=== PATIENT | female | born 1935 | race Caucasian/White ===

== ENCOUNTER 2021-10-16 19:09 | Inpatient (IN) ==
[2021-10-16] MEDS ORDERED: morphine 2 MG/ML VIAL IV ONE (19:30)
--- NOTE | 2021-10-16 19:47 | Emergency Department Note ---
Fall HPI <Darryn Garrison PA-C - Last Filed: 10/16/21 20:23> General Chief Complaint: Fall Stated Complaint: hip fracture Time Seen by Provider: 10/16/21 19:27 Mode of arrival: EMS Limitations: no limitations History of Present Illness HPI Narrative: Narrative:86 y/ofivaniae brought to ED by paramedics as transfer from [facility] ED after she was walking backwards while carrying something, tripped over door threshold and landed on left hip resulting in loud pop and pain. Pt was taken to ED there and found to have hip fracture then transferred here to be cared for by Dr. Hutson, ortho surg. Pt denies hitting her head, CP, SOB, Abd pain neck or back pain. States only current complaint is left hip pain. Related Data Home Medications Medication Instructions Recorded Confirmed acalabrutinib 100 mg capsule 100 mg PO Q12H 10/16/21 10/16/21 (Calquence) apixaban 2.5 mg tablet 2.5 mg PO BID 10/16/21 10/16/21 Allergies Allergy/AdvReac Type Severity Reaction Status Date / Time No Known Drug Allergies Allergy Unverified 10/16/21 19:11 Review of Systems <Darryn Garrison PA-C - Last Filed: 10/16/21 20:23> ROS ROS Narrative: Narrative: Constitutional: Denies fever or chills Eyes: Denies eye pain ENT ED: Denies ear pain Cardiovascular: Denies chest pain or palpitations Respiratory: Denies shortness of breath, cough or wheezes Gastrointestinal: Denies abdominal pain, nausea, vomiting or diarrhea Genitourinary: Denies dysuria, urgency or frequency Musculoskeletal: Reports joint pain (left hip); Denies back pain or joint swelling Integumentary: Reports lesions (multiple bruises due to eliquis); Denies rash Neurological: Denies headache, weakness or confusion Psychiatric: Denies anxiety or depression Endocrine: Denies fatigue Hematological/Lymphatic: Reports easy bleeding and easy bruising PFSH <Darryn Garrison PA-C - Last Filed: 10/16/21 20:23> Narrative Patient History Narrative: Narrative: Left DVT April 2021 CLL dx May 2021 peripheral neuropathy Bilat total knee replacements Kelle fundoplication Medical/Surgical/Family History All Active Problems (Updated 10/16/21 @ 19:49 by Darryn Garrison PA-C) Hip fracture (Acute) Social History Smoking Status: Never smoker Alcohol Intake Frequency: does not drink Substance Use: does not use Exam <Darryn Garrison PA-C - Last Filed: 10/16/21 20:23> Narrative Narrative: Narrative: General Limitations: no limitations General appearance: Present alert and in no apparent distress Head Head: Present atraumatic and normocephalic Eye Eye: Present normal appearance and EOMI ENT ENT: Present normal exam, normal oropharynx and mucous membranes moist Neck Neck: Present normal inspection, full ROM and trachea midline; Absent tenderness Chest Chest: Present normal inspection and symmetric chest wall rise Respiratory Respiratory: Present normal lung sounds bilaterally; Absent respiratory distress Cardiovascular Cardiovascular: Present regular rate, normal rhythm and normal heart sounds Adbominal Abdominal: Present soft and normal bowel sounds; Absent distention, tenderness or guarding Extremities Extremities: Present tenderness (Tender left greater trochanter area left hip with shortening of left leg and internal rotation. ) and pedal edema (trace); Absent calf tenderness Back Back: Present normal inspection; Absent tenderness or L-S tenderness Neurological Neurological: Present alert and oriented X3 Psychiatric Psychiatric: Present normal affect and normal mood Skin Skin: Present warm (WNL) and dry Course <Darryn Garrison PA-C - Last Filed: 10/16/21 20:23> Vital Signs Vital signs: Vital Signs Temperature 98.2 F 10/16/21 19:13 Pulse Rate 95 H 10/16/21 19:13 Respiratory Rate 16 10/16/21 19:13 Blood Pressure 106/73 10/16/21 19:13 Pulse Oximetry (%) 97 10/16/21 19:13 Temperature 97.8 F 10/16/21 23:47 Pulse Rate 92 H 10/16/21 23:47 Respiratory Rate 20 10/16/21 23:47 Blood Pressure 105/58 10/16/21 23:47 Pulse Oximetry (%) 98 10/16/21 23:47 [facility] <Darryn Garrison PA-C - Last Filed: 10/16/21 20:23> MDM Narrative Medical decision making narrative: Narrative:Old records from [facility] reviewed. Dr. Hutson called ED prior to pt arrival requesting repeat x-rays, then call him. Labs reviewed from [facility]. Pt slightly anemic, on Elaquis, will type and screen in ED. Will also obtain CXR and EKG then notify hospitalist and ortho. Pt given Morphine 2mg IV in ED prior to going to x-ray for better pain control. 1999 Ortho paged, in surgery. Will call back later. 2014 Paged and spoke with Dr. Ocampo hospitalist. Will see pt in ED. ED POC Tests ED POC Tests: GLADIS - SARS Antigen Negative Radiology Data Radiology results narrative: CXR reviewed by me shows elevated right hemidiaphragm. Pelvis and left hip x-ray shows comminuted 100% off-set greater trochanteric fracture. EKG Data EKG #1: EKG attestation: Yes I reviewed and interpreted this EKG. and Yes There are no EKG findings of acute coronary syndrome EKG results narrative: NSR at rate of 92, normal axis, borderline low voltage, no ectopy, no STEMI. Discharge Plan Patient/Caregiver Discharge Instructions Pt seen by MYSQL DEVELOPER/PA only: Yes Clinical Impression: Hip fracture Patient Disposition: Still a Patient Discharge Date/Time: 10/16/21 21:24
--- NOTE | 2021-10-16 21:00 | Internal Med History&Physical ---
HPI History of Present Illness Patient information: Note initiated : 10/16/21 at 9:00 pm Service Date, if different from initiated Date: [] Patient: Allison Mcnally a 86 y/o F admitted on for hip fracture. Chief Complaint: [] History of present illness: Ms. Mcnally is a 86 year old F with history of lower extremity DVT/CLL on chemo therapy transferred from [facility] following a fall this evening sustaining Left hip fracture. She was visiting her friend From [facility]. She sustained a mechanical fall while moving backwards and tripping on the door threshold landing on her back. She thereafter was transferred to [facility] where she underwent work-up consistent with left hip fracture. Orthopedics was consulted at [facility] and recommended transfer for operative intervention. Hospitalist service was consulted to facilitate admission while patient will undergo operative intervention in 24 hours. Patient has been on apixaban which was held, her last dose was this morning. At the time of my evaluation patient is alert and oriented. She denies active distress. She denies fever chills, loss of consciousness, headache, chest pain or vertigo. She is otherwise fairly healthy at baseline. She denies recent hospitalization. She follows up with oncology for CLL currently in remission since 2019. Denies precipitating events including lightheadedness, vertigo, dizziness or loss of consciousness following fall. She denies pain elsewhere. Review of systems 10 point review system was performed and is negative except for ones discussed above PFSH PFSH All Active Problems Hip fracture (Acute) Social History alcohol intake frequency: does not drink substance use type: does not use MEDS/ALLERGIES Home Medications and Allergies Home Medications Medication Instructions Recorded Confirmed Type acalabrutinib 100 mg capsule 100 mg PO Q12H 10/16/21 10/16/21 History (Calquence) apixaban 2.5 mg tablet 2.5 mg PO BID 10/16/21 10/16/21 History Allergies Allergy/AdvReac Type Severity Reaction Status Date / Time No Known Drug Allergies Allergy Unverified 10/16/21 19:11 EXAM Constitutional Vitals: Temp Pulse Resp BP Pulse Ox 98.2 F 101 H 16 104/58 97 10/16/21 19:13 12/07/21 20:41 10/16/21 19:13 10/16/21 19:46 10/16/21 20:41 Anxious and in pain Head normocephalic Oral cavity dry No ear or nose discharge Eye no subconjunctival pallor, movement symmetrical S1-S2 tachycardia, occasionally irregular Nonlabored breathing Nondistended nontender abdomen Left lower extremity shortened and externally rotated ,, no lymphedema Skin no suspicious lesion Psych anxious but no hallucination Neuro normal higher function on limited neuro exam A/P Narrative A/P Narrative: * Left hip fracture-orthopedic consulted. Surgery in a.m., keep n.p.o. Pain management. * Preoperative risk evaluation-overall high risk category based on surgery specific risk however no modifiable risk factors at this time. Surgery and anesthesia specific risks will be addressed by individual care providers * History of DVT May 2021, on apixaban, will be held until surgery * History of CLL in remission since 2019 on chemotherapy. * Mild volume depletion-crystalloid challenge/maintenance fluids Plan * Inpatient admission * Orthopedic consult * Pain management * N.p.o. after midnight * Review postop * Hold anticoagulation Time Spent With Patient Time: Total time spent is greater than 50% in coordination of care (as documented) at patient's floor/unit and/or counseling patient: Total time spent with greater than 50% in coordination of care (as documented) at patient's floor/unit and/or counseling patient:: Greater than 35 minutes
[2021-10-16] MEDS: 0.9 % SODIUM CHLORIDE 1,000 ML IV SCH (21:20)
[2021-10-16] MEDS ORDERED: guaiFENesin/CODEINE 10 ML UDC PO PRN (21:52)
[2021-10-16] MEDS ORDERED: hydrALAZINE 20 MG/ML VIAL IV PRN (21:52)
[2021-10-16] MEDS ORDERED: POTASSIUM CHLORIDE 40 MEQ in DEXTROSE 5% IN WATER 500 ML IV PRN (21:52)
[2021-10-16] MEDS ORDERED: BISACODYL 10 MG SUPP.RECT PR PRN (21:52)
[2021-10-16] MEDS ORDERED: ACETAMINOPHEN 650 MG/65 ML BAG IV PRN (21:52)
[2021-10-16] MEDS ORDERED: POLYETHYLENE GLYCOL 3350 17 GM PACKET PO PRN (21:52)
[2021-10-16] MEDS ORDERED: ACETAMINOPHEN 325 MG TABLET PO PRN (21:52)
[2021-10-16] MEDS ORDERED: ONDANSETRON 4 MG/2 ML VIAL IV PRN (21:52)
[2021-10-16] MEDS ORDERED: MAGNESIUM SULFATE 2 GM/50 ML BAG IV PRN (21:52)
[2021-10-16] MEDS ORDERED: ONDANSETRON 4 MG ODT TABLET SL PRN (21:52)
[2021-10-16] MEDS: HYDROmorphone 0.5 MG/0.5 ML SYRINGE IV PRN (22:19)
[2021-10-16] MEDS ORDERED: 0.9 % SODIUM CHLORIDE 500 ML IV ONE (22:23)
[2021-10-16] MEDS: 0.9 % SODIUM CHLORIDE 10 ML SYRINGE IV SCH (23:43)
[2021-10-16] MEDS: SENNOSIDES/DOCUSATE SODIUM 1 TAB TABLET PO SCH (23:43)
[2021-10-16] MEDS: DOCUSATE SODIUM 100 MG CAPSULE PO SCH (23:44)
[2021-10-17] MEDS: HYDROmorphone 0.5 MG/0.5 ML SYRINGE IV PRN ×3 (03:19→15:14)
--- NOTE | 2021-10-17 04:41 | XRay Report ---
INDICATION: fractured hip TECHNIQUE: AP pelvis. AP and crosstable lateral left hip COMPARISON: None. FINDINGS: Mildly comminuted fracture of the intertrochanteric and subtrochanteric left hip. There is displacement. Distal component is displaced medially. There is marked varus angulation deformity. IMPRESSION: Mildly comminuted displaced intertrochanteric and subtrochanteric fracture of the right hip Interpreted and Authenticated by: Adam Nieto 10/17/21
--- NOTE | 2021-10-17 04:43 | XRay Report ---
INDICATION: pre op left hip fracture TECHNIQUE: AP supine chest x-ray COMPARISON: None FINDINGS: Lungs:Lungs are negative. No focal pulmonary parenchymal infiltrate or mass Heart, vascular:No significant cardiomegaly. Pulmonary vascularity is normal. No pulmonary edema or pulmonary congestion Mediastinum, clark:No mediastinal widening. No hilar mass Pleura:Elevated right hemidiaphragm. No evidence for pleural effusion. Skeletal:No detectable rib fracture. No acute abnormality Upper abdomen: There is mild gaseous distention of the stomach IMPRESSION: No acute abnormality Interpreted and Authenticated by: Adam Nieto 10/17/21
[2021-10-17] MEDS: 0.9 % SODIUM CHLORIDE 10 ML SYRINGE IV SCH ×3 (04:58→23:52)
--- NOTE | 2021-10-17 07:00 | Orthopedic History & Physical ---
HPI History of Present Illness Patient information: Note initiated : 10/17/21 at 6:59 am Service Date, if different from initiated Date: [] Patient: Allison Mcnally 86 y/o F admitted on 10/16/21 for hip fracture. Chief Complaint: [left hip pain s/p fall ] Chief complaint: left hip pain s/p fall History of present illness: Ms. Mcnally is a 86 year old Female with history of CLL who was carrying packages at a friends home when she tripped over a door threshold sustaining a mechanical fall. She was subsequently transported to [facility] in [place] where workup and imaging revealed a intertrochanteric fracture of the left hip. Orthopedic surgeon Dr. Hutson was contacted and patient was transferred to [facility] for repeat imaging and treatment. Patient denies head strike or loss of consciousness during the event and denies any other injuries or pain. She is a non-smoker, does not use alcohol or street drugs. Review of Systems All systems: reviewed and no additional remarkable complaints except as stated PFSH PFSH All Active Problems Hip fracture (Acute) Social History alcohol intake frequency: does not drink substance use type: does not use MEDS/ALLERGIES Home Medications and Allergies Home Medications Medication Instructions Recorded Confirmed Type acalabrutinib 100 mg capsule 100 mg PO Q12H 10/16/21 10/16/21 History (Calquence) apixaban 2.5 mg tablet 2.5 mg PO BID 10/16/21 10/16/21 History Allergies Allergy/AdvReac Type Severity Reaction Status Date / Time No Known Drug Allergies Allergy Unverified 10/16/21 19:11 Physical Examination Narrative Narrative: Narrative: Results Labs Result Diagrams: 10/17/21 05:33 10/17/21 05:33 Labs: All other labs normal. A/P Narrative A/P Narrative: On exam patient is seated in bed in no acute distress, lungs are equal and clear, heart normal rate and rhythm. Head, neck, chest, abdomen and right side pelvis are non-tender to palpation. breathing is unlabored with symmetrical chest movement. Both upper extremities and right lower are non-tender to palpation, with normal ROM. There is tenderness to palpation at the left hip and pelvis area and tenderness with any ROM. All four extremities are warm well perfused an neuro intact. patient does endorse mild neuropathy in bilat lower extremities. Options were presented to the patient including non-surgical and surgical option. Non-surgical carries the risk of increased pain, injury to nerves and blood vessels, loss of ROM and pain. Surgical option consisting of Left hip open reduction internal fixation via TFNA hip nail. At this time patient is interested in surgery. Plan is for open reduction internal fixation via LEFT hip TFNA hip nail to take place semi-urgently with Dr. Hutson surgeon and Waqas VALDEZ. Surgical risk were explaine to the patient to include but not limited to: pain, bleeding, infection, injury to nerves and adjacent structures, implant failure/ need for further surgery, stroke risk, cardiac complications, pulmonary complications including pneumonia and pulmonary embolism, DVT and . Patient understands these risks and wishes to proceed with surgery. Time Spent With Patient Time: Total time spent is greater than 50% in coordination of care (as documented) at patient's floor/unit and/or counseling patient:
[2021-10-17 07:19] LABS: Basophils # (Auto) 0.02 K/mcL (0.00-0.30); Basophils % (Auto) 0.2 % (0.0-2.0); Eosinophils # (Auto) 0 K/mcL (0.00-0.70); Eosinophils % (Auto) 0 % (0.0-7.0); Hematocrit 26.5 % (34.1-44.9); Hemoglobin 8.6 g/dL (11.2-15.7); Lymphocytes # (Auto) 6.56 K/mcL (1.50-4.80); Lymphocytes % (Auto) 64.3 % (15.5-49.0); Mean Corpuscular HGB Conc 32.5 g/dL (31.0-36.0); Monocytes # (Auto) 0.78 K/mcL (0.10-0.90); Monocytes % (Auto) 7.6 % (1.0-12.0); Neutrophils % (Auto) 27.9 % (38.0-78.0); Platelet Count 85 K/mcL (140-440); RBC 2.76 M/mcL (3.59-5.38); WBC 10.2 K/mcL (4.5-11.0)
[2021-10-17 07:44] LABS: ALT/SGPT 6 U/L (<40); AST/SGOT 18 U/L (<32); Albumin 3.2 gm/dL (3.2-5.2); Albumin/Globulin Ratio 2.1 (1.0-2.3); Alkaline Phosphatase 71 U/L (39-117); Bilirubin,Direct 0.2 mg/dL (<0.3); Blood Urea Nitrogen 13 mg/dL (8-23); Calcium 8.3 mg/dL (8.6-10.4); Carbon Dioxide 23 mmol/L (22-30); Chloride 105 mmol/L (96-108); Globulin 1.5 gm/dL (2.2-3.7); Glomerular Filtration Rate 58; Glucose 107 mg/dL (70-105); Lactate Dehydrogenase 181 U/L (135-225); Phosphorous 3.9 mg/dL (2.5-4.5); Triglycerides 96 mg/dL (<150); Uric Acid 5.6 mg/dL (2.5-8.0)
[2021-10-17] MEDS: 0.9 % SODIUM CHLORIDE 1,000 ML IV SCH (09:26)
[2021-10-17] MEDS: MULTIVIT,THER IRON,CA,FA & MIN 1 TABLET PO SCH (09:58)
[2021-10-17] MEDS: DOCUSATE SODIUM 100 MG CAPSULE PO SCH ×2 (09:58→23:52)
--- NOTE | 2021-10-17 10:52 | Internal Med Progress Note ---
SUBJECTIVE Subjective Patient information: Note initiated : 10/17/21 at 10:50 am Service Date, if different from initiated Date: [] Patient: Allison Mcnally a 86 y/o F admitted on 10/16/21 for hip fracture. Chief Complaint: [] Interval history: Ms. Mcnally is a 86 year old F with history of lower extremity DVT/CLL on chemo therapy transferred from [facility] following a fall this evening sustaining Left hip fracture. She was visiting her friend at [place] from [facility]. She sustained a mechanical fall while moving backwards and tripping on the door threshold landing on her back. She thereafter was transferred to [facility] where she underwent work-up consistent with left hip fracture. Orthopedics was consulted at [facility] and recommended transfer for operative intervention. Hospitalist service was consulted to facilitate admission while patient will undergo operative intervention in 24 hours. Patient has been on apixaban which was held, her last dose was this morning. At the time of my evaluation patient is alert and oriented. She denies active distress. She denies fever chills, loss of consciousness, headache, chest pain or vertigo. She is otherwise fairly healthy at baseline. She denies recent hospitalization. She follows up with oncology for CLL currently in remission since 2019. Denies precipitating events including lightheadedness, vertigo, dizziness or loss of consciousness following fall. She denies pain elsewhere. 10/17-patient awaits surgery later this evening. Doing well. Pain is reasonably well controlled. Will review postop. No overnight fever chills or concerns per nursing staff. Constitutional Vitals: Vital Signs Temp Pulse Resp BP Pulse Ox 98.4 F 90 18 124/59 95 10/17/21 07:10 10/17/21 07:10 10/17/21 07:10 10/17/21 07:10 10/17/21 07:10 Period Temp Pulse Resp BP Sys/Sánchez Pulse Ox Last 24 Hr 97.8 F-98.4 F 84-101 16-20 98-126/58-73 95-98 Intake and Output 10/16/21 10/17/21 10/17/21 21:59 05:59 13:59 Intake Total 8 500 547 Output Total 300 Balance 8 200 547 Weight 80.059 kg alert oriented Nonlabored breathing Anxious Left lower extremity tenderness around the left hip Intake & Output: Intake & Output 10/16/21 10/17/21 10/17/21 21:59 05:59 13:59 Intake Total 8 500 547 Output Total 300 Balance 8 200 547 Weight 80.059 kg Intake: IV 8 500 547 Sodium Chloride 0.9% 1,000 ml @ 8 0 547 50 mls/hr IV .Q20H [facility] Rx#: [id number] Sodium Chloride 0.9% 500 ml @ 500 Wide Open IV BOLUS ONE Rx#: [id number] Oral 0 Output: Urine Catheter Amount 300 Other: Urine Appearance Clear Uretheral (Stringer) Clear Clear Urine Color Dark Yellow Uretheral (Stringer) Bright Yellow Bright Yellow Urine Odor Uretheral (Stringer) Normal OBJ DATA Labs CBC & Chem 7: 10/17/21 05:33 10/17/21 05:33 Labs: Abnormal Lab Results 10/17/21 10/17/21 05:33 05:33 RBC 2.76 L Hgb 8.6 L Hct 26.5 L Plt Count 85 L MPV 12.0 H Neut % (Auto) 27.9 L Lymph % (Auto) 64.3 H Lymph # (Auto) 6.56 H Anion Gap 7.0 L Glucose 107 H Calcium 8.3 L Total Protein 4.7 L Globulin 1.5 L Meds: Medications Acetaminophen (Acetaminophen 325 Mg Tablet) 650 mg PO Q4-6HP PRN; Protocol PRN Reason: Per Pain Protocol/Fever > 101 Bisacodyl (Bisacodyl 10 Mg Supp.Rect) 10 mg MS Q2-3DAYS PRN PRN Reason: Constipation Docusate Sodium (Docusate Sodium 100 Mg Capsule) 100 mg PO BID [facility] Last Admin: 10/17/21 09:58 Dose: Not Given Documented by: Guaifenesin/Codeine Phosphate (Guaifenesin/Codeine 10 Ml Udc) 10 ml PO Q4HP PRN PRN Reason: Cough Hydralazine HCl (Hydralazine 20 Mg/Ml Vial) 10 mg IV Q4-6HP PRN PRN Reason: Hypertension Hydromorphone HCl (Hydromorphone 0.5 Mg/0.5 Ml Syringe) 0.25 - 0.5 mg IV Q4HP PRN; Protocol PRN Reason: Per Pain Protocol Last Admin: 10/17/21 10:09 Dose: 0.5 mg Documented by: Potassium Chloride 40 meq/ (Dextrose) 520 mls @ 130 mls/hr IV UD PRN PRN Reason: K+ = or < 3.5 Acetaminophen (Ofirmev) 650 mg in 65 mls @ 130 mls/hr IV Q6HP PRN; Protocol PRN Reason: Per Pain Protocol/Fever > 101 Magnesium Sulfate (Magnesium Sulfate) 2 gm in 50 mls @ 50 mls/hr IV UD PRN PRN Reason: MG = or < 1.7 Sodium Chloride (Sodium Chloride 0.9%) 1,000 mls @ 50 mls/hr IV .Q20H [facility] Stop: 10/19/21 09:51 Last Admin: 10/17/21 09:26 Dose: 50 mls/hr Documented by: Iron Carb/Multivit/Restaurant [employer] Person/Folic Acid (Multivit,Ther Iron,Ca,Fa & Min 1 Tablet) 1 tab PO DAILY [facility] Last Admin: 10/17/21 09:58 Dose: Not Given Documented by: Melatonin (Melatonin 3 Mg Tablet) 3 mg PO HSP PRN PRN Reason: Insomnia Ondansetron HCl (Ondansetron 4 Mg Odt Tablet) 4 mg SL Q4-6HP PRN; Protocol PRN Reason: Nausea And Vomiting Ondansetron HCl (Ondansetron 4 Mg/2 Ml Vial) 4 mg IV Q4-6HP PRN; Protocol PRN Reason: Nausea And Vomiting Acalabrutinib [ Calquence] 100 Mg Capsule 1 dose PO Q12 [facility] Last Admin: 10/17/21 10:02 Dose: 1 dose Documented by: Polyethylene Glycol (Polyethylene Glycol 3350 17 Gm Packet) 17 gm PO DAILYP PRN PRN Reason: Constipation Senna/Docusate Sodium (Sennosides/Docusate Sodium 1 Tab Tablet) 1 tab PO HS [facility] Last Admin: 10/16/21 23:43 Dose: Not Given Documented by: Sodium Chloride (0.9 % Sodium Chloride 10 Ml Syringe) 10 ml IV Q8 [facility] Last Admin: 10/17/21 04:58 Dose: Not Given Documented by: A/P Narrative A/P Narrative: * Left hip fracture-orthopedic consulted. Surgery later this evening. Keep n.p.o., continue pain management * Preoperative risk evaluation-overall high risk category based on surgery specific risk however no modifiable risk factors at this time. Surgery and anesthesia specific risks will be addressed by individual care providers * History of DVT May 2021, on apixaban, continue to hold until surgery * History of CLL in remission since 2019 on chemotherapy. * Mild volume depletion-continue crystalloids Plan * Review postop * Continue pain management * Hold anticoagulation * PT, nutrition support Time Spent With Patient Time: Total time spent is greater than 50% in coordination of care (as documented) at patient's floor/unit and/or counseling patient: Total time spent with greater than 50% in coordination of care (as documented) at patient's floor/unit and/or counseling patient:: 25 - 35 minutes
--- NOTE | 2021-10-17 13:40 | Internal Med Progress Note ---
SUBJECTIVE Subjective Patient information: Note initiated : 10/17/21 at 1:38 pm Service Date, if different from initiated Date: [] Patient: Allison Mcnally a 86 y/o F admitted on 10/16/21 for hip fracture. Chief Complaint: [] Interval history: Ms. 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 following a fall this evening sustaining Left hip fracture. She was visiting her friend at [place] from [facility]. She sustained a mechanical fall while moving backwards and tripping on the door threshold landing on her back. She thereafter was transferred to [facility] where she underwent work-up consistent with left hip fracture. Orthopedics was consulted at [facility] and recommended transfer for operative intervention. Hospitalist service was consulted to facilitate admission while patient will undergo operative intervention in 24 hours. Patient has been on apixaban which was held, her last dose was this morning. At the time of my evaluation patient is alert and oriented. She denies active distress. She denies fever chills, loss of consciousness, headache, chest pain or vertigo. She is otherwise fairly healthy at baseline. She denies recent hospitalization. She follows up with oncology for CLL currently in remission since 2019. Denies precipitating events including lightheadedness, vertigo, dizziness or loss of consciousness following fall. She denies pain elsewhere. 10/17-patient awaits surgery later this evening. Doing well. Pain is reasonably well controlled. Will review postop. No overnight fever chills or concerns per nursing staff. Constitutional Vitals: Vital Signs Temp Pulse Resp BP Pulse Ox 98.4 F 97 H 18 109/53 93 10/17/21 11:00 10/17/21 11:00 10/17/21 11:00 10/17/21 11:00 10/17/21 11:00 Period Temp Pulse Resp BP Sys/Sánchez Pulse Ox Last 24 Hr 97.8 F-98.4 F 84-101 16-20 98-126/53-73 93-98 Intake and Output 10/16/21 10/17/21 10/17/21 21:59 05:59 13:59 Intake Total 8 500 547 Output Total 300 Balance 8 200 547 Weight 80.059 kg Intake & Output: Intake & Output 12/05/3010/17/21 10/17/21 21:59 05:59 13:59 Intake Total 8 500 547 Output Total 300 Balance 8 200 547 Weight 80.059 kg Intake: IV 8 500 547 Sodium Chloride 0.9% 1,000 ml @ 8 0 547 50 mls/hr IV .Q20H [facility] Rx#: [id number] Sodium Chloride 0.9% 500 ml @ 500 Wide Open IV BOLUS ONE Rx#: [id number] Oral 0 Output: Urine Catheter Amount 300 Other: Urine Appearance Clear Uretheral (Stringer) Clear Clear Urine Color Dark Yellow Uretheral (Stringer) Bright Yellow Bright Yellow Urine Odor Uretheral (Stringer) Normal Exam: General: Alert, Awake, No acute Distress Eyes/N/T: EOMI, Head/Neck: neck supple, CV: RRR, No murmurs, Pulm: Clear b/l, no wheezing/rhonchi/rales Abd: soft, nontender, +BS x4 Ext: no clubbing/cyanosis/edema Neuro: Alert, no focal deficits, moves all extremities, Skin: warm/dry OBJ DATA Labs CBC & Chem 7: 10/17/21 05:33 10/17/21 05:33 Labs: Abnormal Lab Results 10/17/21 10/17/21 05:33 05:33 RBC 2.76 L Hgb 8.6 L Hct 26.5 L Plt Count 85 L MPV 12.0 H Neut % (Auto) 27.9 L Lymph % (Auto) 64.3 H Lymph # (Auto) 6.56 H Anion Gap 7.0 L Glucose 107 H Calcium 8.3 L Total Protein 4.7 L Globulin 1.5 L Meds: Medications Acetaminophen (Acetaminophen 325 Mg Tablet) 650 mg PO Q4-6HP PRN; Protocol PRN Reason: Per Pain Protocol/Fever > 101 Bisacodyl (Bisacodyl 10 Mg Supp.Rect) 10 mg [place] Q2-3DAYS PRN PRN Reason: Constipation Docusate Sodium (Docusate Sodium 100 Mg Capsule) 100 mg PO BID [facility] Last Admin: 10/17/21 09:58 Dose: Not Given Documented by: Guaifenesin/Codeine Phosphate (Guaifenesin/Codeine 10 Ml Udc) 10 ml PO Q4HP PRN PRN Reason: Cough Hydralazine HCl (Hydralazine 20 Mg/Ml Vial) 10 mg IV Q4-6HP PRN PRN Reason: Hypertension Hydromorphone HCl (Hydromorphone 0.5 Mg/0.5 Ml Syringe) 0.25 - 0.5 mg IV Q4HP PRN; Protocol PRN Reason: Per Pain Protocol Last Admin: 10/17/21 10:09 Dose: 0.5 mg Documented by: Potassium Chloride 40 meq/ (Dextrose) 520 mls @ 130 mls/hr IV UD PRN PRN Reason: K+ = or < 3.5 Acetaminophen (Ofirmev) 650 mg in 65 mls @ 130 mls/hr IV Q6HP PRN; Protocol PRN Reason: Per Pain Protocol/Fever > 101 Magnesium Sulfate (Magnesium Sulfate) 2 gm in 50 mls @ 50 mls/hr IV UD PRN PRN Reason: MG = or < 1.7 Sodium Chloride (Sodium Chloride 0.9%) 1,000 mls @ 50 mls/hr IV .Q20H [facility] Stop: 10/19/21 09:51 Last Admin: 10/17/21 09:26 Dose: 50 mls/hr Documented by: Iron Carb/Multivit/Digitizer/Folic Acid (Multivit,Ther Iron,Ca,Fa & Min 1 Tablet) 1 tab PO DAILY [facility] Last Admin: 10/17/21 09:58 Dose: Not Given Documented by: Melatonin (Melatonin 3 Mg Tablet) 3 mg PO HSP PRN PRN Reason: Insomnia Ondansetron HCl (Ondansetron 4 Mg Odt Tablet) 4 mg SL Q4-6HP PRN; Protocol PRN Reason: Nausea And Vomiting Ondansetron HCl (Ondansetron 4 Mg/2 Ml Vial) 4 mg IV Q4-6HP PRN; Protocol PRN Reason: Nausea And Vomiting Acalabrutinib [ Calquence] 100 Mg Capsule 1 dose PO Q12 [facility] Last Admin: 10/17/21 10:02 Dose: 1 dose Documented by: Polyethylene Glycol (Polyethylene Glycol 3350 17 Gm Packet) 17 gm PO DAILYP PRN PRN Reason: Constipation Senna/Docusate Sodium (Sennosides/Docusate Sodium 1 Tab Tablet) 1 tab PO [facility] Last Admin: 10/16/21 23:43 Dose: Not Given Documented by: Sodium Chloride (0.9 % Sodium Chloride 10 Ml Syringe) 10 ml IV Q8 [facility] Last Admin: 10/17/21 04:58 Dose: Not Given Documented by: A/P Narrative A/P Narrative: A: *Left hip fracture -Preoperative risk evaluation-overall high risk category based on surgery specific risk however no modifiable risk factors at this time. Surgery and anesthesia specific risks will be addressed by individual care providers *h/o DVT May 2021: on apixaban *h/o CLL in remission since 2018: on chemotherapy *Mild volume depletion-continue crystalloids Plan: -Ortho for ORIF -Hold anticoagulation, restart postop per ortho -cont home medication for CLL -pt/ot -ppx: SCD, post op home apixaban Time Spent With Patient Time: Total time spent is greater than 50% in coordination of care (as documented) at patient's floor/unit and/or counseling patient:
[2021-10-17] MEDS ORDERED: GLYCOPYRROLATE 0.2 MG/ML VIAL IV ONE (20:34)
[2021-10-17] MEDS ORDERED: MIDAZOLAM 2 MG/2 ML VIAL ONE (20:34)
[2021-10-17] MEDS ORDERED: ROPIVACAINE HCL/PF 20 ML VIAL IJ ONE (20:34)
[2021-10-17] MEDS ORDERED: ETOMIDATE 20 MG/10 ML VIAL IV ONE (20:34)
[2021-10-17] MEDS ORDERED: KETAMINE 50 MG/ML Syringe (ANEST) IV ONE (20:34)
[2021-10-17] MEDS ORDERED: ONDANSETRON 4 MG/2 ML VIAL ONE (20:34)
[2021-10-17] MEDS ORDERED: TRANEXAMIC ACID 1,000 MG/10 ML VIAL ONE ×2 (20:34→22:39)
[2021-10-17] MEDS ORDERED: HYDROmorphone 1 MG/ML SYRINGE ONE (20:34)
[2021-10-17] MEDS ORDERED: LIDOCAINE HCL/PF 100 MG/5 ML SYRINGE IV ONE (20:34)
[2021-10-17] MEDS ORDERED: METHOCARBAMOL 1,000 MG/10 ML VIAL IV PRN (21:50)
[2021-10-17] MEDS ORDERED: BENZOCAINE/MENTHOL 1 LOZENGE PO PRN ×2 (21:50→22:09)
[2021-10-17] MEDS ORDERED: fentaNYL 100 MCG/2 ML VIAL IV PRN (21:50)
[2021-10-17] MEDS ORDERED: IPRATROPIUM/ALBUTEROL 3 ML AMPUL.NEB NEB PRN (21:50)
[2021-10-17] MEDS ORDERED: ONDANSETRON 4 MG/2 ML VIAL IV PRN (21:50)
[2021-10-17] MEDS ORDERED: MEPERIDINE 25 MG/ML VIAL IV PRN (21:50)
[2021-10-17] MEDS ORDERED: LACTATED RINGERS 1,000 ML IV SCH (22:00)
--- NOTE | 2021-10-17 22:07 | General Surgery Procedure Note ---
Date of procedure: Note initiated : 10/17/21 at 10:06 pm Service Date, if different from initiated Date: [] Pre-op diagnosis: left hip subtrochanteric fracture Post-op diagnosis: same Procedure: left hip TFNa nail Findings: subtroch fracture Anesthesia: CATHLEEN Surgeon: Adam Hutson Strapper: Alonzo Lebron Estimated blood loss: 150 Pathology: none sent Condition: stable Disposition: PACU
--- NOTE | 2021-10-17 22:08 | Discharge Plan ---
DC Instructions-General Patient Instructions Dressing Care: May shower in 2 days Discharge Plan Patient/Caregiver Discharge Instructions Activity: ambulate only with your walker, as per physical therapy and as instructed Diet: Regular Diet Prescriptions: No Action apixaban 2.5 mg Tablet 2.5 mg PO BID 0RF Calquence 100 mg Capsule 100 mg PO Q12H 0RF Follow Up Plan Follow up with: Austin Rankin MD [Primary Care Provider] - Sylvester Lerner PA-C [Physician Pulp Mixer] - 10/29/21 3:20 pm Patient Disposition: Xfer SNF Rehab Potential: Good I certify that the patient requires SNF services: Yes Overall status at discharge: patient is progressing back to baseline Discharge Orders: Discharge Order (Routine); Ordered 10/19/21 Ordered By: Adam Hutson Discharge Comment: cc: left hip it fracture
[2021-10-17] MEDS ORDERED: FLEETS ADULT ENEMA PR PRN (22:09)
[2021-10-17] MEDS ORDERED: ONDANSETRON 4 MG ODT TABLET SL PRN (22:09)
[2021-10-17] MEDS ORDERED: TRANEXAMIC ACID 1,000 MG/10 ML VIAL IV ONE (22:09)
[2021-10-17] MEDS ORDERED: morphine 4 MG/ML VIAL IV PRN (22:09)
[2021-10-17] MEDS ORDERED: KETOROLAC 15 MG/ML VIAL IV PRN (22:09)
[2021-10-17] MEDS ORDERED: MAGNESIUM HYDROXIDE 30 ML ORAL.SUSP PO PRN (22:09)
[2021-10-17] MEDS ORDERED: BISACODYL 10 MG SUPP.RECT PR PRN (22:09)
[2021-10-17] MEDS ORDERED: POLYETHYLENE GLYCOL 3350 17 GM PACKET PO PRN (22:09)
[2021-10-17] MEDS ORDERED: LACTATED RINGERS 500 ML IV SCH (23:25)
[2021-10-17] MEDS: SENNOSIDES/DOCUSATE SODIUM 1 TAB TABLET PO SCH (23:52)
[2021-10-18] MEDS: LACTATED RINGERS 1,000 ML IV SCH ×2 (00:03→11:58)
[2021-10-18] MEDS: 0.9 % SODIUM CHLORIDE 1,000 ML IV SCH ×2 (00:07→14:27)
[2021-10-18] MEDS ORDERED: LACTATED RINGERS 1,000 ML IV ONE ×2 (00:22→05:00)
[2021-10-18 01:35] LABS: Hemoglobin 6.6 g/dL (11.2-15.7)
[2021-10-18 01:36] LABS: Hematocrit 21.1 % (34.1-44.9)
[2021-10-18] MEDS ORDERED: 0.9 % SODIUM CHLORIDE 250 ML IV SCH ×2 (01:45→05:00)
[2021-10-18] MEDS: ceFAZolin 2 GM in DEXTROSE 5% IN WATER 50 ML IV SCH ×2 (01:49→10:27)
--- NOTE | 2021-10-18 05:48 | XRay Report ---
INDICATION: LEFT HIP IM NAIL TECHNIQUE: Intraoperative spot films and fluoroscopy utilized. Open reduction and internal fixation of left intertrochanteric and subtrochanteric hip fracture. Gamma nail reduction performed. 1.7 minutes fluoroscopy and 26.3 mGy exposure utilized IMPRESSION: 1. [Reduction and internal fixation of left hip fracture 2. Intraoperative fluoroscopy and spot films utilized Interpreted and Authenticated by: Adam Nieto 10/18/21
--- NOTE | 2021-10-18 06:00 | XRay Report ---
INDICATION: surgery TECHNIQUE: AP pelvis. AP and crosstable lateral left hip COMPARISON: Preoperative evaluation dated 10/16/2021 FINDINGS: Status post open reduction and internal fixation of left intertrochanteric and subtrochanteric fracture. There is a gamma nail configuration. Alignment is near-anatomic. Pelvis is negative. Sacrum and right hip are negative. IMPRESSION: Status post open reduction and internal fixation of left hip fracture Interpreted and Authenticated by: Adam Nieto 10/18/21
[2021-10-18] MEDS: 0.9 % SODIUM CHLORIDE 10 ML SYRINGE IV SCH ×3 (06:09→21:15)
--- NOTE | 2021-10-18 06:51 | Orthopedic Progress Note ---
SUBJECTIVE Subjective Patient information: Note initiated : 10/18/21 at 6:43 am Service Date, if different from initiated Date: [] Patient: Allison Mcnally 86 y/o F admitted on 10/16/21 for hip fracture. Chief Complaint: [s/p left TFNA hip nail ] Pertinent ROS: 10 point ROS performed and is negative except where mentioned. Constitutional Vitals: Vital Signs Temp Pulse Resp BP Pulse Ox 99.1 F H 102 H 18 106/52 96 10/18/21 05:30 10/18/21 05:30 10/18/21 05:30 10/18/21 05:30 10/18/21 05:30 Period Temp Pulse Resp BP Sys/Sánchez Pulse Ox Last 24 Hr 98.1 F-99.1 F 90-123 12-28 60-124/34-77 92-100 Intake and Output 10/17/21 10/18/21 10/18/21 21:59 05:59 13:59 Intake Total 628 4670 Output Total 175 700 Balance 453 3970 Weight 181 lb 4.8 oz Intake & Output: Intake & Output 10/17/21 10/18/21 10/18/21 21:59 05:59 13:59 Intake Total 628 4670 Output Total 175 700 Balance 453 3970 Weight 181 lb 4.8 oz Intake: IV 453 2545 Sodium Chloride 0.9% 1,000 ml @ 453 50 mls/hr IV .Q20H [facility] Rx#: [id number] Lactated Ringers 1,000 ml @ 100 2495 mls/hr IV .Q10H [facility] Rx#: [id number] Ancef 2 gm In Dextrose 5% in 50 Water 50 ml @ 100 mls/hr IV Q8H [facility] Rx#:[id number] Oral 175 0 Blood Product 325 IV - Manual Only 1800 Output: Urine Catheter Amount 175 400 Estimated Blood Loss 300 Other: Urine Appearance Clear Urine Color Dark Yellow OBJ DATA Labs CBC & Chem 7: 10/18/21 00:43 10/17/21 05:33 Labs: Abnormal Lab Results 10/18/21 10/17/21 10/17/21 00:43 05:33 05:33 RBC 2.76 L Hgb 6.6 L* 8.6 L Hct 21.1 L 26.5 L Plt Count 85 L MPV 12.0 H Neut % (Auto) 27.9 L Lymph % (Auto) 64.3 H Lymph # (Auto) 6.56 H Anion Gap 7.0 L Glucose 107 H Calcium 8.3 L Total Protein 4.7 L Globulin 1.5 L Meds: Medications Acetaminophen (Acetaminophen 325 Mg Tablet) 650 mg PO Q4-6HP PRN; Protocol PRN Reason: Per Pain Protocol/Fever > 101 Hydrocodone Bitart/Acetaminophen (Hydrocodone/Apap 10/325mg Tablet) 0 tab PO Q4HP PRN; Protocol PRN Reason: Per Pain Protocol Bisacodyl (Bisacodyl 10 Mg Supp.Rect) 10 mg [place] Q2-3DAYS PRN PRN Reason: Constipation Docusate Sodium (Docusate Sodium 100 Mg Capsule) 100 mg PO BID [facility] Guaifenesin/Codeine Phosphate (Guaifenesin/Codeine 10 Ml Udc) 10 ml PO Q4HP PRN PRN Reason: Cough Hydralazine HCl (Hydralazine 20 Mg/Ml Vial) 10 mg IV Q4-6HP PRN PRN Reason: Hypertension Potassium Chloride 40 meq/ (Dextrose) 520 mls @ 130 mls/hr IV UD PRN PRN Reason: K+ = or < 3.5 Acetaminophen (Ofirmev) 650 mg in 65 mls @ 130 mls/hr IV Q6HP PRN; Protocol PRN Reason: Per Pain Protocol/Fever > 101 Last Admin: 10/18/21 05:47 Dose: 130 mls/hr Documented by: Magnesium Sulfate (Magnesium Sulfate) 2 gm in 50 mls @ 50 mls/hr IV UD PRN PRN Reason: MG = or < 1.7 Sodium Chloride (Sodium Chloride 0.9%) 1,000 mls @ 50 mls/hr IV .Q20H [facility] Stop: 10/19/21 09:51 Last Admin: 10/18/21 00:07 Dose: Not Given Documented by: Lactated Ringer's (Lactated Ringers) 1,000 mls @ 100 mls/hr IV .Q10H [facility] Last Infusion: 10/18/21 05:30 Dose: 100 mls/hr Documented by: Lactated Ringer's (Lactated Ringers) 500 mls @ 0 mls/hr IV .Q0M [facility] Last Infusion: 10/18/21 00:00 Dose: Infused Documented by: Sodium Chloride (Sodium Chloride 0.9%) 250 mls @ 20 mls/hr IV .[id number] [facility] Stop: 10/18/21 14:14 Last Admin: 10/18/21 06:06 Dose: Not Given Documented by: Sodium Chloride (Sodium Chloride 0.9%) 250 mls @ 20 mls/hr IV .[id number] [facility] Stop: 10/18/21 17:29 Iron Carb/Multivit/Clutier/Folic Acid (Multivit,Ther Iron,Ca,Fa & Min 1 Tablet) 1 tab PO DAILY [facility] Last Admin: 10/17/21 09:58 Dose: Not Given Documented by: Ketorolac Tromethamine (Ketorolac 15 Mg/Ml Vial) 15 mg IV Q6HP PRN; Protocol PRN Reason: Per Pain Protocol Stop: 10/19/21 22:11 Magnesium Hydroxide (Magnesium Hydroxide 30 Ml Oral.Susp) 30 ml PO BIDP PRN PRN Reason: Constipation Melatonin (Melatonin 3 Mg Tablet) 3 mg PO HSP PRN PRN Reason: Insomnia Methocarbamol (Methocarbamol 750 Mg Tablet) 750 mg PO Q6HP PRN PRN Reason: Muscle Spasm Morphine Sulfate (Morphine 4 Mg/Ml Vial) 0 mg IV Q1HP PRN; Protocol PRN Reason: Per Pain Protocol Ondansetron HCl (Ondansetron 4 Mg/2 Ml Vial) 4 mg IV Q4-6HP PRN; Protocol PRN Reason: Nausea And Vomiting Ondansetron HCl (Ondansetron 4 Mg Odt Tablet) 4 mg SL Q4HP PRN; Protocol PRN Reason: Nausea And Vomiting Acalabrutinib [ Calquence] 100 Mg Capsule 1 dose PO Q12 [facility] Last Admin: 10/17/21 23:52 Dose: Not Given Documented by: Polyethylene Glycol (Polyethylene Glycol 3350 17 Gm Packet) 17 gm PO DAILYP PRN PRN Reason: Constipation Senna (Sennosides 1 Tablet) 2 tab PO HS [facility] Sodium Biphosphate/Sodium Phosphate (Fleets Adult Enema) 1 dose [place] Q3-4DAYS PRN PRN Reason: Constipation Sodium Chloride (0.9 % Sodium Chloride 10 Ml Syringe) 10 ml IV Q8 [facility] Last Admin: 10/18/21 06:09 Dose: Not Given Documented by: Throat Lozenges (Benzocaine/Menthol 1 Lozenge) 1 lozenge PO PRN PRN PRN Reason: Sore Throat A/P Narrative A/P Narrative: Patient seen and examined this am, awake, alert and cooperative. has expected post-op pain but feels it is well managed on current regimen. Dressing at E clean dry and intact, both LE warm, well perfused and neuro intact. Hypotensive , Tachy last night in 120s , bolused with LR, current HR 102, respirations 18, with hemoglobin 6.6 receiving packed RBCs. WB as tolerated, PT/OT Plan is for discharge to rehab in 1-2 days and follow up at [facility] in 10-14 days Time Spent With Patient Time: Total time spent is greater than 50% in coordination of care (as documented) at patient's floor/unit and/or counseling patient:
--- NOTE | 2021-10-18 07:56 | Internal Med Progress Note ---
SUBJECTIVE Subjective Patient information: Note initiated : 10/18/21 at 7:52 am Service Date, if different from initiated Date: [] Patient: Allison Mcnally a 86 y/o F admitted on 10/16/21 for hip fracture. Chief Complaint: [] Interval history: Ms. 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 She was visiting her friend at [place] from [facility]. She sustained a mechanical fall while moving backwards and tripping on the door threshold landing on her back. She thereafter was transferred to [facility] where she underwent work-up consistent with left hip fracture. Orthopedics was consulted at [facility] and recommended transfer for operative intervention. Hospitalist service was consulted to facilitate admission while patient will undergo operative intervention in 24 hours. Patient has been on apixaban which was held, her last dose was this morning. At the time of my evaluation patient is alert and oriented. She denies active distress. She denies fever chills, loss of consciousness, headache, chest pain or vertigo. She is otherwise fairly healthy at baseline. She denies recent hospitalization. She follows up with oncology for CLL currently in remission since 2019. Denies precipitating events including lightheadedness, vertigo, dizziness or loss of consciousness following fall. She denies pain elsewhere. 10/17-patient awaits surgery later this evening. Doing well. Pain is reasonably well controlled. Will review postop. No overnight fever chills or concerns per nursing staff. 10/18 Patient was hypotensive last night although asymptomatic other than fatigue but she was quite anemic at 6.6 postop. Received a unit of blood last night awaiting 2nd unit still. Receive lactated Ringer bolus x2. Patient denies any chest pain shortness of breath nausea. Review of Systems: denies headache/fever/chills/nausea/vomiting/chest or abdominal pain/cough/dysp jaye/diarrhea. Otherwise see above. Constitutional Vitals: Vital Signs Temp Pulse Resp BP Pulse Ox 98.0 F 98 H 18 94/54 96 10/18/21 07:00 10/18/21 07:00 10/18/21 07:00 10/18/21 07:00 10/18/21 07:00 Period Temp Pulse Resp BP Sys/Sánchez Pulse Ox Last 24 Hr 98.0 F-99.1 F 96-123 12-28 60-116/34-77 92-100 Intake and Output 10/17/21 10/18/21 10/18/21 21:59 05:59 13:59 Intake Total 628 4670 65 Output Total 175 700 Balance 453 3970 65 Weight 82.236 kg Intake & Output: Intake & Output 10/17/21 10/18/21 10/18/21 21:59 05:59 13:59 Intake Total 628 4670 65 Output Total 175 700 Balance 453 3970 65 Weight 82.236 kg Intake: IV 453 2545 65 Sodium Chloride 0.9% 1,000 ml @ 453 50 mls/hr IV .Q20H [facility] Rx#: [id number] Lactated Ringers 1,000 ml @ 100 2495 mls/hr IV .Q10H [facility] Rx#: [id number] Ancef 2 gm In Dextrose 5% in 50 Water 50 ml @ 100 mls/hr IV Q8H [facility] Rx#:[id number] Oral 175 0 Blood Product 325 IV - Manual Only 1800 Output: Urine Catheter Amount 175 400 Estimated Blood Loss 300 Other: Urine Appearance Clear Urine Color Dark Yellow Exam: General: Alert, Awake, No acute Distress Eyes/N/T: EOMI, Head/Neck: neck supple, CV: RRR, No murmurs, Pulm: Clear b/l, no wheezing/rhonchi/rales Abd: soft, nontender, +BS x4 Ext: no clubbing/cyanosis/edema Neuro: Alert, no focal deficits, moves all extremities, Skin: warm/dry OBJ DATA Labs CBC & Chem 7: 10/18/21 00:43 10/17/21 05:33 Labs: Abnormal Lab Results 10/18/21 10/17/21 10/17/21 00:43 05:33 05:33 RBC 2.76 L Hgb 6.6 L* 8.6 L Hct 21.1 L 26.5 L Plt Count 85 L MPV 12.0 H Neut % (Auto) 27.9 L Lymph % (Auto) 64.3 H Lymph # (Auto) 6.56 H Anion Gap 7.0 L Glucose 107 H Calcium 8.3 L Total Protein 4.7 L Globulin 1.5 L Meds: Medications Acetaminophen (Acetaminophen 325 Mg Tablet) 650 mg PO Q4-6HP PRN; Protocol PRN Reason: Per Pain Protocol/Fever > 101 Hydrocodone Bitart/Acetaminophen (Hydrocodone/Apap 10/325mg Tablet) 0 tab PO Q4HP PRN; Protocol PRN Reason: Per Pain Protocol Bisacodyl (Bisacodyl 10 Mg Supp.Rect) 10 mg SC Q2-3DAYS PRN PRN Reason: Constipation Docusate Sodium (Docusate Sodium 100 Mg Capsule) 100 mg PO BID [facility] Guaifenesin/Codeine Phosphate (Guaifenesin/Codeine 10 Ml Udc) 10 ml PO Q4HP PRN PRN Reason: Cough Hydralazine HCl (Hydralazine 20 Mg/Ml Vial) 10 mg IV Q4-6HP PRN PRN Reason: Hypertension Potassium Chloride 40 meq/ (Dextrose) 520 mls @ 130 mls/hr IV UD PRN PRN Reason: K+ = or < 3.5 Acetaminophen (Ofirmev) 650 mg in 65 mls @ 130 mls/hr IV Q6HP PRN; Protocol PRN Reason: Per Pain Protocol/Fever > 101 Last Infusion: 10/18/21 06:20 Dose: Infused Documented by: Magnesium Sulfate (Magnesium Sulfate) 2 gm in 50 mls @ 50 mls/hr IV UD PRN PRN Reason: MG = or < 1.7 Sodium Chloride (Sodium Chloride 0.9%) 1,000 mls @ 50 mls/hr IV .Q20H [facility] Stop: 10/19/21 09:51 Last Admin: 10/18/21 00:07 Dose: Not Given Documented by: Lactated Ringer's (Lactated Ringers) 1,000 mls @ 100 mls/hr IV .Q10H [facility] Last Infusion: 10/18/21 05:30 Dose: 100 mls/hr Documented by: Lactated Ringer's (Lactated Ringers) 500 mls @ 0 mls/hr IV .Q0M [facility] Last Infusion: 10/18/21 00:00 Dose: Infused Documented by: Sodium Chloride (Sodium Chloride 0.9%) 250 mls @ 20 mls/hr IV .[id number] [facility] Stop: 10/18/21 14:14 Last Admin: 10/18/21 06:06 Dose: Not Given Documented by: Sodium Chloride (Sodium Chloride 0.9%) 250 mls @ 20 mls/hr IV .[id number] [facility] Stop: 10/18/21 17:29 Iron Carb/Multivit/Track Car Operator/Folic Acid (Multivit,Ther Iron,Ca,Fa & Min 1 Tablet) 1 tab PO DAILY [facility] Last Admin: 10/17/21 09:58 Dose: Not Given Documented by: Ketorolac Tromethamine (Ketorolac 15 Mg/Ml Vial) 15 mg IV Q6HP PRN; Protocol PRN Reason: Per Pain Protocol Stop: 10/19/21 22:11 Magnesium Hydroxide (Magnesium Hydroxide 30 Ml Oral.Susp) 30 ml PO BIDP PRN PRN Reason: Constipation Melatonin (Melatonin 3 Mg Tablet) 3 mg PO HSP PRN PRN Reason: Insomnia Methocarbamol (Methocarbamol 750 Mg Tablet) 750 mg PO Q6HP PRN PRN Reason: Muscle Spasm Morphine Sulfate (Morphine 4 Mg/Ml Vial) 0 mg IV Q1HP PRN; Protocol PRN Reason: Per Pain Protocol Ondansetron HCl (Ondansetron 4 Mg/2 Ml Vial) 4 mg IV Q4-6HP PRN; Protocol PRN Reason: Nausea And Vomiting Ondansetron HCl (Ondansetron 4 Mg Odt Tablet) 4 mg SL Q4HP PRN; Protocol PRN Reason: Nausea And Vomiting Acalabrutinib [ Calquence] 100 Mg Capsule 1 dose PO Q12 [facility] Last Admin: 10/17/21 23:52 Dose: Not Given Documented by: Polyethylene Glycol (Polyethylene Glycol 3350 17 Gm Packet) 17 gm PO DAILYP PRN PRN Reason: Constipation Senna (Sennosides 1 Tablet) 2 tab PO HS [facility] Sodium Biphosphate/Sodium Phosphate (Fleets Adult Enema) 1 dose SC Q3-4DAYS PRN PRN Reason: Constipation Sodium Chloride (0.9 % Sodium Chloride 10 Ml Syringe) 10 ml IV Q8 [facility] Last Admin: 10/18/21 06:09 Dose: Not Given Documented by: Throat Lozenges (Benzocaine/Menthol 1 Lozenge) 1 lozenge PO PRN PRN PRN Reason: Sore Throat A/P Narrative A/P Narrative: A: *Left hip fracture: s/p ORIF (10/17) -Preoperative risk evaluation-overall high risk category based on surgery specific risk however no modifiable risk factors at this time. Surgery and anesthesia specific risks will be addressed by individual care providers *Acute post-op anemia: -2prbc (10/18) *Hypotension, asymptomatic: *h/o DVT May 2021: on apixaban *h/o CLL in remission since 2019: on chemotherapy *volume depletion: Plan: -Ortho following -f/u H&H, prn transfusion -Hold anticoagulation for now -IVF -cont home medication for CLL -pt/ot -ppx: SCD, post op home apixaban Time Spent With Patient Time: Total time spent is greater than 50% in coordination of care (as documented) at patient's floor/unit and/or counseling patient:
--- NOTE | 2021-10-18 08:14 | Operative Note ---
DATE OF OPERATION: 10/17/2021 PREOPERATIVE DIAGNOSIS: Reverse oblique subtrochanteric fracture, left hip. POSTOPERATIVE DIAGNOSIS: Reverse oblique subtrochanteric fracture, left hip. PROCEDURE: Left hip cephalomedullary nailing. SURGEON: Adam Hutson M.D. PER DIEM PHYSICAL THERAPIST ASSISTANT SURGEON: Waqas Lebron PA-C. The PA's assistance was required for the safe and efficient completion of the entire case. This provider's expertise and technical skill were required throughout the case. The PA assisted with preoperative coordination, intraoperative retraction, limb manipulation, wound closure, dressing application, as well as post-operative documentation and care coordination. ANESTHESIA: Spinal with LMA assist. ESTIMATED BLOOD LOSS: 150 mL COMPLICATIONS: None noted. SPECIMENS REMOVED: None DRAINS: None. IMPLANTS: Synthes TFNA 11 x 125 degree 235 mm left nail, TFNA fenestrated helical blade 95 mm, 5.0 mm titanium locking screw, 34 mm length. INDICATIONS: The patient fell and was unable to ambulate. Radiographs have confirmed a displaced intertrochanteric fracture of the proximal femur. The patient was admitted to the hospital and underwent medical clearance. After a long discussion about treatment options, the patient elected to proceed with cephalomedullary nailing. The risks and benefits were discussed with the patient in detail including, but not limited to, the risks of anesthesia, problems with the heart or lungs related to anesthesia, infection, compromise or injury to the nerves and blood vessels, deep venous thrombosis, pulmonary embolism, pneumonia, continued pain after surgery, worsening pain or symptoms after surgery, swelling, loss of motion, malunion, non-union, leg length discrepancy, and need for repeat surgery. DESCRIPTION OF PROCEDURE: The patient was seen in pre-anesthesia waiting room where all questions were answered and the correct side and site were identified and marked. The patient was then brought to the operating room and administered the anesthetic, tranexamic acid, and given pre-operative antibiotics. A time-out was then called. The patient was placed on the fracture table with all prominences well padded. The leg was brought into traction, adduction, and slight internal rotation. We used c-arm with orthogonal views to confirm anatomic reduction of the fracture. The extremity was prepped and draped in the usual sterile fashion. C-arm was again used to confirm landmarks. We made a 4 cm incision overlying the fracture site. We dissected down and used a ball-tip guide to reduce the fracture under direct visualization. A percutaneous incision was created about 4 centimeters proximal to the greater trochanter. A guide pin was placed into the femoral canal under fluoroscopy after we found the appropriate starting position along the medial boarder of the trochanter and just anterior to the center position laterally. We placed a protector sleeve proximally and over-reamed with the 17 mm proximal reamer. Next, we changed out the guide pin for a ball-tipped guide kai and placed it into the femoral canal. Position was confirmed with the c-arm. The 235 mm Synthes TFNA nail was then placed with appropriate depth and version using the percutaneous targeting guide. The lateral helical blade sleeve was placed in the targeting guide and a second small percutaneous incision was made to allow the sleeve access to the lateral cortex of the femur. We drilled the guide pin into the center center position of the femoral head confirmed with fluoroscopy. We measured and drilled over the guide pin. The helical blade was then inserted and we compressed the fracture. The targeting sleeve was again used to place a percutaneous 5.0 mm screw distally in the static hole. It was drilled, measured, and placed using c-arm guidance. Traction was removed on the hip. The targeting device was then removed and final radiographs were taken confirming reduction of the fracture and adequate placement of all hardware. We thoroughly irrigated the three percutaneous incisions and closed the deep fascia with #0 Vicryl. We closed the subcutaneous tissue and skin in layers out to lacy in the skin. A sterile pressure dressing was applied. All needle and sponge counts were correct. The patient was transferred to the recovery room in stable condition. LOUIE:rene Job ID: [id number] Doc ID: [id number] Annabella Hutson MD
--- NOTE | 2021-10-18 08:41 | EKG ---
[facility] Test Date: 2021-10-16 Pat Name: Allison Mcnally Department: ED Room: Gender: Female Rn Icu: 1685 : 1935 Requested By: Darryn Garrison Order Number: [id number] Reading MD: Adam Valladares M.D. Measurements Intervals Lindsay Rate: 92 P: 59 OR: 130 QRS: 12 QRSD: 88 T: 65 QT: 368 QTc: 456 Interpretive Statements Sinus rhythm Borderline low voltage, extremity leads Electronically Signed On 10-18-2021 8:40:59 PST by Adam Valladares M.D. /store/M0/[id number]
[2021-10-18 09:00] LABS: Basophils # (Auto) 0.02 K/mcL (0.00-0.30); Basophils % (Auto) 0.3 % (0.0-2.0); Eosinophils # (Auto) 0 K/mcL (0.00-0.70); Eosinophils % (Auto) 0 % (0.0-7.0); Hematocrit 20.9 % (34.1-44.9); Hemoglobin 6.9 g/dL (11.2-15.7); Lymphocytes # (Auto) 3.45 K/mcL (1.50-4.80); Mean Cell Volume 92.9 fL (80.0-100.0); Mean Platelet Volume 12.2 fL (7.4-10.4); Monocytes # (Auto) 0.58 K/mcL (0.10-0.90); Monocytes % (Auto) 9.4 % (1.0-12.0); Neutrophils % (Auto) 34.3 % (38.0-78.0); Platelet Count 66 K/mcL (140-440); RBC 2.25 M/mcL (3.59-5.38); Red Cell Distribution Width 15.8 % (11.5-14.5); WBC 6.2 K/mcL (4.5-11.0)
[2021-10-18 09:15] LABS: ALT/SGPT 6 U/L (<40); AST/SGOT 17 U/L (<32); Albumin 2.4 gm/dL (3.2-5.2); Albumin/Globulin Ratio 1.8 (1.0-2.3); Alkaline Phosphatase 54 U/L (39-117); Bilirubin,Direct 0.3 mg/dL (<0.3); Bilirubin,Total 0.9 mg/dL (0.1-1.0); Blood Urea Nitrogen 12 mg/dL (8-23); Calcium 7.8 mg/dL (8.6-10.4); Carbon Dioxide 20 mmol/L (22-30); Chloride 106 mmol/L (96-108); Globulin 1.3 gm/dL (2.2-3.7); Glomerular Filtration Rate 66; Glucose 113 mg/dL (70-105); Lactate Dehydrogenase 173 U/L (135-225); Phosphorous 2.7 mg/dL (2.5-4.5); Triglycerides 94 mg/dL (<150); Uric Acid 4.9 mg/dL (2.5-8.0)
[2021-10-18] MEDS: MULTIVIT,THER IRON,CA,FA & MIN 1 TABLET PO SCH (10:25)
[2021-10-18] MEDS: DOCUSATE SODIUM 100 MG CAPSULE PO SCH ×2 (10:26→21:13)
[2021-10-18] MEDS ORDERED: IOPAMIDOL 100 ML BOTTLE IV ONE (12:06)
--- NOTE | 2021-10-18 12:27 | Cat Scan Report ---
INDICATION: anemia, r/o hematoma around surgical site COMPARISON: None. TECHNIQUE: Axial images were obtained through the pelvis. Sagittally and coronally reformatted images. 80ml Isovue 370 injected intravenously. FINDINGS: There is beam hardening artifact with image degradation. Status post open reduction and internal fixation of left intertrochanteric and subtrochanteric hip fracture. There is a gamma nail configuration. Gamma nail is in appropriate position within the bone. There is no extraosseous extension. There is enlargement of the anterior musculature, predominantly the vastus intermedius muscle. Appearance is consistent with intramuscular hemorrhage. A well-defined hematoma is not identified. There is no contrast extravasation or pooling. Common femoral artery and superficial femoral artery are negative. No pseudoaneurysm. There is nonspecific infiltration of subcutaneous fat. There is soft tissue gas in this recently postoperative patient. There is no intrapelvic abnormality. There is no acute fracture. IMPRESSION: 1. [Status post open reduction internal fixation of left intertrochanteric and subtrochanteric fracture. Gamma nail configuration is in anatomic location. 2. Enlargement of the vastus intermedius muscle consistent with intramuscular hemorrhage. A well-defined hematoma is not identified 3. No contrast extravasation or pooling. 4. Soft tissue gas is consistent with postsurgical change The exam was performed using radiation dose optimization techniques including, but not limited to, automated exposure control, adjustment of the mA and/or kV according to patient size and use of iterative reconstruction technique. Interpreted and Authenticated by: Adam Nieto 10/18/21
[2021-10-18 16:16] LABS: Hematocrit 24.1 % (34.1-44.9); Hemoglobin 8.4 g/dL (11.2-15.7); Mean Cell Volume 89.3 fL (80.0-100.0); Mean Corpuscular HGB Conc 34.9 g/dL (31.0-36.0); Mean Platelet Volume 11.6 fL (7.4-10.4); Platelet Count 60 K/mcL (140-440); Red Cell Distribution Width 15.9 % (11.5-14.5); WBC 7.4 K/mcL (4.5-11.0)
[2021-10-18 16:39] LABS: Anisocytosis 1+ (None Seen); Band Neutrophils % 1 % (0-10); Lymphocytes % 53 % (15-49); Monocytes % (Manual) 11 % (1-12); Platelet Estimate DECREASED (Normal); RBC Morphology ABNORMAL (Normal); Segmented Neutrophils % 35 % (38-78)
[2021-10-18] MEDS: SENNOSIDES 1 TABLET PO SCH (21:13)
[2021-10-18] MEDS: MELATONIN 3 MG TABLET PO PRN (21:13)
[2021-10-19] MEDS: 0.9 % SODIUM CHLORIDE 10 ML SYRINGE IV SCH ×3 (04:37→21:46)
[2021-10-19] MEDS: METHOCARBAMOL 750 MG TABLET PO PRN (05:26)
[2021-10-19] MEDS: HYDROcodone/APAP 10/325MG TABLET PO PRN ×2 (05:26→21:47)
[2021-10-19] MEDS ORDERED: KETOROLAC 30 MG/ML VIAL IV PRN (07:00)
--- NOTE | 2021-10-19 07:18 | Orthopedic Progress Note ---
SUBJECTIVE Subjective Patient information: Note initiated : 10/19/21 at 7:13 am Service Date, if different from initiated Date: [] Patient: Allison Mcnally 86 y/o F admitted on 10/16/21 for hip fracture. Chief Complaint: [s/p left hip TFNA nail ] Pertinent ROS: 10 point review is negative except where mentioned Constitutional Vitals: Vital Signs Temp Pulse Resp BP Pulse Ox 97.6 F 92 H 20 95/51 94 10/19/21 06:42 10/19/21 04:38 10/19/21 06:42 10/19/21 06:42 10/19/21 06:42 Period Temp Pulse Resp BP Sys/Sánchez Pulse Ox Last 24 Hr 97 F-98.5 F 89-98 16- 95-109/51-58 94-97 Intake and Output 10/18/21 10/19/21 10/19/21 21:59 05:59 13:59 Intake Total 400 600 Output Total 1450 350 Balance -1050 250 Weight 189 lb 9.6 oz Intake & Output: Intake & Output 10/18/21 10/19/21 10/19/21 21:59 05:59 13:59 Intake Total 400 600 Output Total 1450 350 Balance -1050 250 Weight 189 lb 9.6 oz Intake: Oral 400 600 Output: Urine Catheter Amount 1450 350 Other: Urine Appearance Clear Clear Uretheral (Stringer) Clear Urine Color Light Julienne Dark Yellow Uretheral (Stringer) Dark Yellow Urine Odor Normal # Bowel Movements 0 OBJ DATA Labs CBC & Chem 7: 10/18/21 15:00 10/18/21 06:15 Labs: Abnormal Lab Results 10/18/21 10/18/21 10/18/21 15:00 06:15 06:15 RBC 2.70 L 2.25 L Hgb 8.4 L 6.9 L* Hct 24.1 L 20.9 L* RDW 15.9 H 15.8 H Plt Count 60 L 66 L MPV 11.6 H 12.2 H Neut % (Auto) 34.3 L Lymph % (Auto) 56.0 H Lymph # (Auto) Seg Neutrophils % 35 L Lymphocytes % 53 H Platelet Estimate Decreased A RBC Morphology Abnormal A Anisocytosis 1+ A Carbon Dioxide 20 L Anion Gap Glucose 113 H Calcium 7.8 L Direct Bilirubin 0.3 H Total Protein 3.7 L Albumin 2.4 L Globulin 1.3 L 10/18/21 10/17/21 10/17/21 00:43 05:33 05:33 RBC 2.76 L Hgb 6.6 L* 8.6 L Hct 21.1 L 26.5 L RDW Plt Count 85 L MPV 12.0 H Neut % (Auto) 27.9 L Lymph % (Auto) 64.3 H Lymph # (Auto) 6.56 H Seg Neutrophils % Lymphocytes % Platelet Estimate RBC Morphology Anisocytosis Carbon Dioxide Anion Gap 7.0 L Glucose 107 H Calcium 8.3 L Direct Bilirubin Total Protein 4.7 L Albumin Globulin 1.5 L Meds: Medications Acetaminophen (Acetaminophen 325 Mg Tablet) 650 mg PO Q4-6HP PRN; Protocol PRN Reason: Per Pain Protocol/Fever > 101 Last Admin: 10/18/21 19:33 Dose: 650 mg Documented by: Hydrocodone Bitart/Acetaminophen (Hydrocodone/Apap 10/325mg Tablet) 0 tab PO Q4HP PRN; Protocol PRN Reason: Per Pain Protocol Last Admin: 10/19/21 05:26 Dose: 1 tab Documented by: Bisacodyl (Bisacodyl 10 Mg Supp.Rect) 10 mg ND Q2-3DAYS PRN PRN Reason: Constipation Docusate Sodium (Docusate Sodium 100 Mg Capsule) 100 mg PO BID CANDELARIA Last Admin: 10/18/21 21:13 Dose: 100 mg Documented by: Guaifenesin/Codeine Phosphate (Guaifenesin/Codeine 10 Ml Udc) 10 ml PO Q4HP PRN PRN Reason: Cough Hydralazine HCl (Hydralazine 20 Mg/Ml Vial) 10 mg IV Q4-6HP PRN PRN Reason: Hypertension Potassium Chloride 40 meq/ (Dextrose) 520 mls @ 130 mls/hr IV UD PRN PRN Reason: K+ = or < 3.5 Acetaminophen (Ofirmev) 650 mg in 65 mls @ 130 mls/hr IV Q6HP PRN; Protocol PRN Reason: Per Pain Protocol/Fever > 101 Last Infusion: 10/18/21 06:20 Dose: Infused Documented by: Magnesium Sulfate (Magnesium Sulfate) 2 gm in 50 mls @ 50 mls/hr IV UD PRN PRN Reason: MG = or < 1.7 Last Admin: 10/19/21 04:36 Dose: 50 mls/hr Documented by: Iron Carb/Multivit/[place]/Folic Acid (Multivit,Ther Iron,Ca,Fa & Min 1 Tablet) 1 tab PO DAILY [facility] Last Admin: 10/18/21 10:25 Dose: 1 tab Documented by: Ketorolac Tromethamine (Ketorolac 30 Mg/Ml Vial) 15 mg IV Q6HP PRN; Protocol PRN Reason: Per Pain Protocol Stop: 10/19/21 22:11 Magnesium Hydroxide (Magnesium Hydroxide 30 Ml Oral.Susp) 30 ml PO BIDP PRN PRN Reason: Constipation Melatonin (Melatonin 3 Mg Tablet) 3 mg PO HSP PRN PRN Reason: Insomnia Last Admin: 10/18/21 21:13 Dose: 3 mg Documented by: Methocarbamol (Methocarbamol 750 Mg Tablet) 750 mg PO Q6HP PRN PRN Reason: Muscle Spasm Last Admin: 10/19/21 05:26 Dose: 750 mg Documented by: Morphine Sulfate (Morphine 4 Mg/Ml Vial) 0 mg IV Q1HP PRN; Protocol PRN Reason: Per Pain Protocol Ondansetron HCl (Ondansetron 4 Mg/2 Ml Vial) 4 mg IV Q4-6HP PRN; Protocol PRN Reason: Nausea And Vomiting Ondansetron HCl (Ondansetron 4 Mg Odt Tablet) 4 mg SL Q4HP PRN; Protocol PRN Reason: Nausea And Vomiting Acalabrutinib [ Calquence] 100 Mg Capsule 1 dose PO Q12 [facility] Polyethylene Glycol (Polyethylene Glycol 3350 17 Gm Packet) 17 gm PO DAILYP PRN PRN Reason: Constipation Senna (Sennosides 1 Tablet) 2 tab PO HS [facility] Last Admin: 10/18/21 21:13 Dose: 2 tab Documented by: Sodium Biphosphate/Sodium Phosphate (Fleets Adult Enema) 1 dose ND Q3-4DAYS PRN PRN Reason: Constipation Sodium Chloride (0.9 % Sodium Chloride 10 Ml Syringe) 10 ml IV Q8 [facility] Last Admin: 10/19/21 04:37 Dose: 10 ml Documented by: Throat Lozenges (Benzocaine/Menthol 1 Lozenge) 1 lozenge PO PRN PRN PRN Reason: Sore Throat A/P Narrative A/P Narrative: Patient seen and examined this am. awake alert and oriented x3 has some expected post op pain but feels it is well managed on current regimen. Dressing at LLE clean dry and intact. Both lower extremities are warm, well perfused and neuro intact. WB as tolerated, PT/OT, pain control Stable from orthopedic standpoint, will defer final dispo to attending hospitalist plan is for expected discharge to family friends home in [place] where she has assistance and follow up at [facility] in 10-14 days Time Spent With Patient Time: Total time spent is greater than 50% in coordination of care (as documented) at patient's floor/unit and/or counseling patient:
[2021-10-19 08:07] LABS: Basophils # (Auto) 0.02 K/mcL (0.00-0.30); Basophils % (Auto) 0.3 % (0.0-2.0); Eosinophils # (Auto) 0.02 K/mcL (0.00-0.70); Eosinophils % (Auto) 0.3 % (0.0-7.0); Hemoglobin 7.6 g/dL (11.2-15.7); Lymphocytes # (Auto) 4.34 K/mcL (1.50-4.80); Lymphocytes % (Auto) 61.6 % (15.5-49.0); Mean Cell Volume 92.7 fL (80.0-100.0); Mean Corpuscular HGB Conc 31.7 g/dL (31.0-36.0); Mean Platelet Volume 12.4 fL (7.4-10.4); Monocytes # (Auto) 0.59 K/mcL (0.10-0.90); Monocytes % (Auto) 8.4 % (1.0-12.0); Neutrophils % (Auto) 29.4 % (38.0-78.0); Platelet Count 53 K/mcL (140-440); RBC 2.59 M/mcL (3.59-5.38); Red Cell Distribution Width 16.1 % (11.5-14.5); WBC 7.1 K/mcL (4.5-11.0)
--- NOTE | 2021-10-19 08:14 | Internal Med Progress Note ---
SUBJECTIVE Subjective Patient information: Note initiated : 10/19/21 at 8:06 am Service Date, if different from initiated Date: [] Patient: Allison Mcnally a 86 y/o F admitted on 10/16/21 for hip fracture. Chief Complaint: [] Interval history: Ms. 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 She was visiting her friend at [place] from [facility]. She sustained a mechanical fall while moving backwards and tripping on the door threshold landing on her back. She thereafter was transferred to [facility] where she underwent work-up consistent with left hip fracture. Orthopedics was consulted at [facility] and recommended transfer for operative intervention. Hospitalist service was consulted to facilitate admission while patient will undergo operative intervention in 24 hours. Patient has been on apixaban which was held, her last dose was this morning. At the time of my evaluation patient is alert and oriented. She denies active distress. She denies fever chills, loss of consciousness, headache, chest pain or vertigo. She is otherwise fairly healthy at baseline. She denies recent hospitalization. She follows up with oncology for CLL currently in remission since 2019. Denies precipitating events including lightheadedness, vertigo, dizziness or loss of consciousness following fall. She denies pain elsewhere. 10/17-patient awaits surgery later this evening. Doing well. Pain is reasonably well controlled. Will review postop. No overnight fever chills or concerns per nursing staff. 10/18 Patient was hypotensive last night although asymptomatic other than fatigue but she was quite anemic at 6.6 postop. Received a unit of blood last night awaiting 2nd unit still. Receive lactated Ringer bolus x2. Patient denies any chest pain shortness of breath nausea. 10/19 Patient states she slept better feels well better today. Denies dizziness or lightheadedness chest pain or shortness of breath. Hemogl 7.6 states. Transfuse 1 unit given intramuscular hemorrhage follow-up H&H. Monitor platelets. Review of Systems: denies headache/fever/chills/nausea/vomiting/chest or abdominal pain/cough/dyspnea/diarrhea. Otherwise see above. Constitutional Vitals: Vital Signs Temp Pulse Resp BP Pulse Ox 97.6 F 92 H 20 95/51 94 10/19/21 06:42 10/19/21 04:38 10/19/21 06:42 10/19/21 06:42 10/19/21 06:42 Period Temp Pulse Resp BP Sys/Sánchez Pulse Ox Last 24 Hr 97 F-98.5 F 89-98 16-20 95-109/51-58 94-97 Intake and Output 10/18/21 10/19/21 10/19/21 21:59 05:59 13:59 Intake Total 400 600 Output Total 1450 350 Balance -1050 250 Weight 86.001 kg Intake & Output: Intake & Output 10/18/21 10/19/21 10/19/21 21:59 05:59 13:59 Intake Total 400 600 Output Total 1450 350 Balance -1050 250 Weight 86.001 kg Intake: Oral 400 600 Output: Urine Catheter Amount 1450 350 Other: Urine Appearance Clear Clear Uretheral (Stringer) Clear Urine Color Light Julienne Dark Yellow Uretheral (Stringer) Dark Yellow Urine Odor Normal # Bowel Movements 0 Exam: General: Alert, Awake, No acute Distress, obese Eyes/N/T: EOMI, Head/Neck: neck supple, CV: RRR, No murmurs, Pulm: Clear b/l, no wheezing/rhonchi/rales Abd: soft, nontender, +BS x4 Ext: no clubbing/cyanosis/edema Neuro: Alert, no focal deficits, moves all extremities, Skin: warm/dry OBJ DATA Labs CBC & Chem 7: 10/19/21 05:58 10/18/21 06:15 Labs: Abnormal Lab Results 10/18/21 10/18/21 10/18/21 15:00 06:15 06:15 RBC 2.70 L 2.25 L Hgb 8.4 L 6.9 L* Hct 24.1 L 20.9 L* RDW 15.9 H 15.8 H Plt Count 60 L 66 L MPV 11.6 H 12.2 H Neut % (Auto) 34.3 L Lymph % (Auto) 56.0 H Lymph # (Auto) Seg Neutrophils % 35 L Lymphocytes % 53 H Platelet Estimate Decreased A RBC Morphology Abnormal A Anisocytosis 1+ A Carbon Dioxide 20 L Anion Gap Glucose 113 H Calcium 7.8 L Direct Bilirubin 0.3 H Total Protein 3.7 L Albumin 2.4 L Globulin 1.3 L 10/18/21 10/17/21 10/17/21 00:43 05:33 05:33 RBC 2.76 L Hgb 6.6 L* 8.6 L Hct 21.1 L 26.5 L RDW Plt Count 85 L MPV 12.0 H Neut % (Auto) 27.9 L Lymph % (Auto) 64.3 H Lymph # (Auto) 6.56 H Seg Neutrophils % Lymphocytes % Platelet Estimate RBC Morphology Anisocytosis Carbon Dioxide Anion Gap 7.0 L Glucose 107 H Calcium 8.3 L Direct Bilirubin Total Protein 4.7 L Albumin Globulin 1.5 L Meds: Medications Acetaminophen (Acetaminophen 325 Mg Tablet) 650 mg PO Q4-6HP PRN; Protocol PRN Reason: Per Pain Protocol/Fever > 101 Last Admin: 10/18/21 19:33 Dose: 650 mg Documented by: Hydrocodone Bitart/Acetaminophen (Hydrocodone/Apap 10/325mg Tablet) 0 tab PO Q4HP PRN; Protocol PRN Reason: Per Pain Protocol Last Admin: 10/19/21 05:26 Dose: 1 tab Documented by: Bisacodyl (Bisacodyl 10 Mg Supp.Rect) 10 mg TN Q2-3DAYS PRN PRN Reason: Constipation Docusate Sodium (Docusate Sodium 100 Mg Capsule) 100 mg PO BID CANDELARIA Last Admin: 10/18/21 21:13 Dose: 100 mg Documented by: Guaifenesin/Codeine Phosphate (Guaifenesin/Codeine 10 Ml Udc) 10 ml PO Q4HP PRN PRN Reason: Cough Hydralazine HCl (Hydralazine 20 Mg/Ml Vial) 10 mg IV Q4-6HP PRN PRN Reason: Hypertension Potassium Chloride 40 meq/ (Dextrose) 520 mls @ 130 mls/hr IV UD PRN PRN Reason: K+ = or < 3.5 Acetaminophen (Ofirmev) 650 mg in 65 mls @ 130 mls/hr IV Q6HP PRN; Protocol PRN Reason: Per Pain Protocol/Fever > 101 Last Infusion: 10/18/21 06:20 Dose: Infused Documented by: Magnesium Sulfate (Magnesium Sulfate) 2 gm in 50 mls @ 50 mls/hr IV UD PRN PRN Reason: MG = or < 1.7 Last Admin: 10/19/21 04:36 Dose: 50 mls/hr Documented by: Iron Carb/Multivit/Tar Heater Operator/Folic Acid (Multivit,Ther Iron,Ca,Fa & Min 1 Tablet) 1 tab PO DAILY [facility] Last Admin: 10/18/21 10:25 Dose: 1 tab Documented by: Ketorolac Tromethamine (Ketorolac 30 Mg/Ml Vial) 15 mg IV Q6HP PRN; Protocol PRN Reason: Per Pain Protocol Stop: 10/19/21 22:11 Magnesium Hydroxide (Magnesium Hydroxide 30 Ml Oral.Susp) 30 ml PO BIDP PRN PRN Reason: Constipation Melatonin (Melatonin 3 Mg Tablet) 3 mg PO HSP PRN PRN Reason: Insomnia Last Admin: 10/18/21 21:13 Dose: 3 mg Documented by: Methocarbamol (Methocarbamol 750 Mg Tablet) 750 mg PO Q6HP PRN PRN Reason: Muscle Spasm Last Admin: 10/19/21 05:26 Dose: 750 mg Documented by: Morphine Sulfate (Morphine 4 Mg/Ml Vial) 0 mg IV Q1HP PRN; Protocol PRN Reason: Per Pain Protocol Ondansetron HCl (Ondansetron 4 Mg/2 Ml Vial) 4 mg IV Q4-6HP PRN; Protocol PRN Reason: Nausea And Vomiting Ondansetron HCl (Ondansetron 4 Mg Odt Tablet) 4 mg SL Q4HP PRN; Protocol PRN Reason: Nausea And Vomiting Acalabrutinib [ Calquence] 100 Mg Capsule 1 dose PO Q12 [facility] Polyethylene Glycol (Polyethylene Glycol 3350 17 Gm Packet) 17 gm PO DAILYP PRN PRN Reason: Constipation Senna (Sennosides 1 Tablet) 2 tab PO HS [facility] Last Admin: 10/18/21 21:13 Dose: 2 tab Documented by: Sodium Biphosphate/Sodium Phosphate (Fleets Adult Enema) 1 dose TN Q3-4DAYS PRN PRN Reason: Constipation Sodium Chloride (0.9 % Sodium Chloride 10 Ml Syringe) 10 ml IV Q8 [facility] Last Admin: 10/19/21 04:37 Dose: 10 ml Documented by: Throat Lozenges (Benzocaine/Menthol 1 Lozenge) 1 lozenge PO PRN PRN PRN Reason: Sore Throat A/P Narrative A/P Narrative: A: *Left hip fracture: s/p ORIF (10/17) -Preoperative risk evaluation-overall high risk category based on surgery specific risk however no modifiable risk factors at this time. Surgery and anesthesia specific risks will be addressed by individual care providers *Acute post-op anemia / trauma from fx, on chronic anemia: -Hgb 7.6<8.4(2prbc 10/18)<6.6<8.6 *Vastus Intermedius intramuscular hemorrhage: 2/2 trauma *Hypotension, asymptomatic: improved but low-normal, asymptomatic with mild hypotension *h/o DVT May 2021: on apixaban *h/o CLL in remission since 2019: on chemotherapy *obesity: *Thrombocytopenia, chronic: *volume depletion: Plan: -Ortho following -f/u H&H, prn transfusion (1 unit today), platelet transfusion if fall <50k -Hold anticoagulation for now given intramuscular bleeding and anemia -cont home medication for CLL -pt/ot -ppx: SCD, Time Spent With Patient Time: Total time spent is greater than 50% in coordination of care (as documented) at patient's floor/unit and/or counseling patient:
[2021-10-19] MEDS ORDERED: 0.9 % SODIUM CHLORIDE 250 ML IV SCH (08:15)
[2021-10-19 08:35] LABS: ALT/SGPT 6 U/L (<40); AST/SGOT 18 U/L (<32); Albumin 2.5 gm/dL (3.2-5.2); Albumin/Globulin Ratio 1.6 (1.0-2.3); Alkaline Phosphatase 63 U/L (39-117); Bilirubin,Direct 0.3 mg/dL (<0.3); Bilirubin,Total 1.2 mg/dL (0.1-1.0); Blood Urea Nitrogen 8 mg/dL (8-23); Carbon Dioxide 23 mmol/L (22-30); Chloride 102 mmol/L (96-108); Globulin 1.6 gm/dL (2.2-3.7); Glomerular Filtration Rate 66; Glucose 107 mg/dL (70-105); Lactate Dehydrogenase 157 U/L (135-225); Phosphorous 2.6 mg/dL (2.5-4.5); Triglycerides 89 mg/dL (<150); Uric Acid 4.8 mg/dL (2.5-8.0)
[2021-10-19] MEDS: MULTIVIT,THER IRON,CA,FA & MIN 1 TABLET PO SCH (09:27)
[2021-10-19] MEDS: DOCUSATE SODIUM 100 MG CAPSULE PO SCH ×2 (09:28→21:47)
--- NOTE | 2021-10-19 10:22 | Discharge Summary ---
Discharge Provider Provider Patient information: Note initiated : 10/19/21 at 10:21 am Service Date, if different from initiated Date: [] Patient: Allison Mcnally a 86 y/o F admitted on 10/16/21 for hip fracture. Chief Complaint: [] Date of admission: 10/16/21 21:24 Discharge date: 10/22/21 Primary care physician: Austin Rankin MD Consults: 10/16/21 Consult to Physician [CONS] Stat Comment: Left hip fracture Consulting Provider: Howie Ocampo Reason For Exam: Physician to Consult Consult to Physician [CONS] Stat Comment: Left hip fracture Consulting Provider: Adam Hutson Reason For Exam: Physician to Consult Discharge Meds Discharge Medications Home Medications acalabrutinib 100 mg capsule (Calquence) 100 mg PO Q12H 10/16/21 [History Confirmed 10/16/21 Last Taken Unknown] apixaban 2.5 mg tablet 2.5 mg PO BID 10/16/21 [History Confirmed 10/16/21 Last Taken Unknown] hydrocodone 10 mg-acetaminophen 325 mg tablet 1 - 2 tab PO Q4H PRN #60 tab 10/17/21 [Rx Last Taken Unknown] COURSE Hospital Course Hospital course: Interval history: Ms. 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 She was visiting her friend at [place] from [facility]. She sustained a mechanical fall while moving backwards and tripping on the door threshold landing on her back. She thereafter was transferred to [facility] where she underwent work-up consistent with l eft hip fracture. Orthopedics was consulted at [facility] and recommended transfer for operative intervention. Hospitalist service was consulted to facilitate admission while patient will undergo operative intervention in 24 hours. Patient has been on apixaban which was held, her last dose was this morning. At the time of my evaluation patient is alert and oriented. She denies active distress. She denies fever chills, loss of consciousness, headache, chest pain or vertigo. She is otherwise fairly healthy at baseline. She denies recent hospitalization. She follows up with oncology for CLL currently in remission since 2019. Denies precipitating events including lightheadedness, vertigo, dizziness or loss of consciousness following fall. She denies pain elsewhere. 10/17-patient awaits surgery later this evening. Doing well. Pain is reasonably well controlled. Will review postop. No overnight fever chills or concerns per nursing staff. 10/18 Patient was hypotensive last night although asymptomatic other than fatigue but she was quite anemic at 6.6 postop. Received a unit of blood last night awaiting 2nd unit still. Receive lactated Ringer bolus x2. Patient denies any chest pain shortness of breath nausea. 10/19 Patient states she slept better feels well better today. Denies dizziness or lightheadedness chest pain or shortness of breath. Hemogl 7.6 states. Tra nsfuse 1 unit given intramuscular hemorrhage follow-up H&H. Monitor platelets. 10/20 Patient still feeling weak. No overnight events. No new complaints. Hemoglobin mid eights. Platelets stable. Placement for Friday to retirement facility. 10/21 No overnight event or new complaints. Hemoglobin stable. Awaiting placement. 10/22 Discharge to retirement facility. A: *Left hip fracture: s/p ORIF (10/17) *Acute post-op anemia / trauma from fx, on chronic anemia: *Vastus Intermedius intramuscular hemorrhage: 12/12 trauma *Hypotension, asymptomatic: improved but low-normal, asymptomatic with mild hypotension *h/o DVT May 2021: on apixaban *h/o CLL in remission since 2018: on chemotherapy *obesity: *Thrombocytopenia, chronic: Discharge diagnosis: Left hip fracture intramuscular hemorrhage anemia Secondary discharge diagnosis: Hypotension DVT CLL obesity chronic thrombocytopenia Time Spent with Patient Time attestation: Total time spent providing and/or coordinating discharge services: Time spent: Greater than 30 minutes EXAM Constitutional Vitals: Temp Pulse Resp BP Pulse Ox 97.6 F 92 H 20 95/51 94 10/19/21 06:42 10/19/21 04:38 10/19/21 06:42 10/19/21 06:42 10/19/21 06:42 Discharge Data Data Completed and Pending Labs on day of discharge: Labs from last 24 hours 10/19/21 10/19/21 10/18/21 05:58 05:58 15:00 WBC 7.1 RBC 2.59 L Hgb 7.6 L Hct 24.0 L TNP MCV 92.7 MCH 29.3 MCHC 31.7 RDW 16.1 H Plt Count 53 L MPV 12.4 H Neut % (Auto) 29.4 L Lymph % (Auto) 61.6 H Bulloch % (Auto) 8.4 Eos % (Auto) 0.3 Baso % (Auto) 0.3 Lymph # (Auto) 4.34 Bulloch # (Auto) 0.59 Eos # (Auto) 0.02 Baso # (Auto) 0.02 Seg Neutrophils % Band Neutrophils % Lymphocytes % Monocytes % (Manual) Absolute Neutrophils 2.08 Platelet Estimate RBC Morphology Anisocytosis Sodium 133 Potassium 3.8 Chloride 102 Carbon Dioxide 23 Anion Gap 8.0 BUN 8 Creatinine 0.8 GFR Calculation 66 Glucose 107 H Uric Acid 4.8 Calcium 8.0 L Phosphorus 2.6 Magnesium 2.2 Total Bilirubin 1.2 H Direct Bilirubin 0.3 H GGT 5 AST 18 ALT 6 Alkaline Phosphatase 63 Lactate Dehydrogenase 157 Total Protein 4.1 L Albumin 2.5 L Globulin 1.6 L Albumin/Globulin Ratio 1.6 Triglycerides 89 10/18/21 15:00 WBC 7.4 RBC 2.70 L Hgb 8.4 L Hct 24.1 L MCV 89.3 MCH 31.1 MCHC 34.9 RDW 15.9 H Plt Count 60 L MPV 11.6 H Neut % (Auto) Lymph % (Auto) Bulloch % (Auto) Eos % (Auto) Baso % (Auto) Lymph # (Auto) Bulloch # (Auto) Eos # (Auto) Baso # (Auto) Seg Neutrophils % 35 L Band Neutrophils % 1 Lymphocytes % 53 H Monocytes % (Manual) 11 Absolute Neutrophils Platelet Estimate Decreased A RBC Morphology Abnormal A Anisocytosis 1+ A Sodium Potassium Chloride Carbon Dioxide Anion Gap BUN Creatinine GFR Calculation Glucose Uric Acid Calcium Phosphorus Magnesium Total Bilirubin Direct Bilirubin GGT AST ALT Alkaline Phosphatase Lactate Dehydrogenase Total Protein Albumin Globulin Albumin/Globulin Ratio Triglycerides Discharge Plan Patient/Caregiver Discharge Instructions Activity: ambulate only with your walker, as per physical therapy and as instructed Diet: Regular Diet Prescriptions: New hydrocodone-acetaminophen 10-325 mg Tablet 1 - 2 tab PO Q4H PRN (Reason: Pain) Qty: 60 0RF Continued apixaban 2.5 mg Tablet 2.5 mg PO BID 0RF Calquence 100 mg Capsule 100 mg PO Q12H 0RF Other Ambulatory Orders: OT Discharge Order (Routine) Location: None Selected Ordered By: Adam Hutson Physical Therapy DC - General (Routine) Location: None Selected Ordered By: Adam Hutson Toilet Riser Discharge Order (ONCE) Location: None Selected Ordered By: Adam Hutson Walker (ONCE) Location: None Selected Ordered By: Adam Hutson Follow Up Plan Follow up with: Austin Rankin MD [Primary Care Provider] - Sylvester Lerner PA-C [Physician Cheese Specialist] - 10/29/21 3:20 pm Patient Disposition: Xfer SNF Rehab Potential: Good I certify that the patient requires SNF services: Yes Overall status at discharge: patient is progressing back to baseline Discharge Orders: Discharge Order (Routine); Ordered 10/20/21 Ordered By: Adam Hutson Discharge Comment: cc: left hip it fracture
[2021-10-19 18:02] LABS: Hematocrit 28.3 % (34.1-44.9); Hemoglobin 9.6 g/dL (11.2-15.7)
[2021-10-19] MEDS: MELATONIN 3 MG TABLET PO PRN (21:47)
[2021-10-19] MEDS: SENNOSIDES 1 TABLET PO SCH (21:47)
[2021-10-20] MEDS: 0.9 % SODIUM CHLORIDE 10 ML SYRINGE IV SCH ×3 (04:33→21:42)
[2021-10-20 07:00] LABS: Basophils # (Auto) 0.02 K/mcL (0.00-0.30); Basophils % (Auto) 0.3 % (0.0-2.0); Eosinophils # (Auto) 0.03 K/mcL (0.00-0.70); Eosinophils % (Auto) 0.4 % (0.0-7.0); Hematocrit 25.8 % (34.1-44.9); Hemoglobin 8.6 g/dL (11.2-15.7); Lymphocytes # (Auto) 4.83 K/mcL (1.50-4.80); Lymphocytes % (Auto) 63.1 % (15.5-49.0); Mean Cell Volume 90.5 fL (80.0-100.0); Mean Corpuscular HGB Conc 33.3 g/dL (31.0-36.0); Mean Platelet Volume 12.6 fL (7.4-10.4); Monocytes # (Auto) 0.61 K/mcL (0.10-0.90); Neutrophils % (Auto) 28.2 % (38.0-78.0); Platelet Count 66 K/mcL (140-440); RBC 2.85 M/mcL (3.59-5.38); Red Cell Distribution Width 15.7 % (11.5-14.5); WBC 7.7 K/mcL (4.5-11.0)
[2021-10-20 07:40] LABS: ALT/SGPT 6 U/L (<40); AST/SGOT 16 U/L (<32); Albumin 2.4 gm/dL (3.2-5.2); Albumin/Globulin Ratio 1.3 (1.0-2.3); Alkaline Phosphatase 68 U/L (39-117); Bilirubin,Direct 0.3 mg/dL (<0.3); Bilirubin,Total 1.1 mg/dL (0.1-1.0); Blood Urea Nitrogen 9 mg/dL (8-23); Calcium 8.1 mg/dL (8.6-10.4); Carbon Dioxide 22 mmol/L (22-30); Chloride 102 mmol/L (96-108); Globulin 1.9 gm/dL (2.2-3.7); Glomerular Filtration Rate 78; Glucose 107 mg/dL (70-105); Lactate Dehydrogenase 167 U/L (135-225); Phosphorous 2.7 mg/dL (2.5-4.5); Triglycerides 89 mg/dL (<150); Uric Acid 4.8 mg/dL (2.5-8.0)
--- NOTE | 2021-10-20 08:54 | Internal Med Progress Note ---
SUBJECTIVE Subjective Patient information: Note initiated : 10/20/21 at 8:51 am Service Date, if different from initiated Date: [] Patient: Allison Mcnally a 86 y/o F admitted on 10/16/21 for hip fracture. Chief Complaint: [] Interval history: Ms. 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 following a fall this evening sustaining Left hip fracture. She was visiting her friend at [place] from [facility]. She sustained a mechanical fall while moving backwards and tripping on the door threshold landing on her back. She thereafter was transferred to [facility] where she underwent work-up consistent with left hip fracture. Orthopedics was consulted at [facility] and recommended transfer for operative intervention. Hospitalist service was consulted to facilitate admission while patient will undergo operative intervention in 24 hours. Patient has been on apixaban which was held, her last dose was this morning. At the time of my evaluation patient is alert and oriented. She denies active distress. She denies fever chills, loss of consciousness, headache, chest pain or vertigo. She is otherwise fairly healthy at baseline. She denies recent hospitalization. She follows up with oncology for CLL currently in remission since 2019. Denies precipitating events including lightheadedness, vertigo, dizziness or loss of consciousness following fall. She denies pain elsewhere. 10/17-patient awaits surgery later this evening. Doing well. Pain is reasonably well controlled. Will review postop. No overnight fever chills or concerns per nursing staff. 10/18 Patient was hypotensive last night although asymptomatic other than fatigue but she was quite anemic at 6.6 postop. Received a unit of blood last night awaiting 2nd unit still. Receive lactated Ringer bolus x2. Patient denies any chest pain shortness of breath nausea. 10/19 Patient states she slept better feels well better today. Denies dizziness or lightheadedness chest pain or shortness of breath. Hemogl 7.6 states. Transfuse 1 unit given intramuscular hemorrhage follow-up H&H. Monitor platelets. 10/20 Patient still feeling weak. No overnight events. No new complaints. Hemoglobin mid eights. Platelets stable. Pl[facility] for Friday to detention facility. Review of Systems: denies headache/fever/chills/nausea/vomiting/chest or abdominal pain/c ough/dyspnea/diarrhea. Otherwise see above. Constitutional Vitals: Vital Signs Temp Pulse Resp BP Pulse Ox 97.7 F 97 H 21 99/60 97 10/20/21 06:57 10/20/21 06:57 10/20/21 06:57 10/20/21 06:57 10/20/21 06:57 Period Temp Pulse Resp BP Sys/Sánchez Pulse Ox Last 24 Hr 97.7 F-98.6 F 85-98 - 91-129/56-70 94-98 Intake and Output 10/19/21 10/20/21 10/20/21 21:59 05:59 13:59 Intake Total 300 500 Output Total 750 Balance 300 -250 Weight 87.77 kg Intake & Output: Intake & Output 10/19/21 10/20/21 10/20/21 21:59 05:59 13:59 Intake Total 300 500 Output Total 750 Balance 300 -250 Weight 87.77 kg Intake: Oral 300 500 Output: Urine Catheter Amount 750 Other: Meal Dinner Percent of Meal Consumed 75% Feeding Ability Independent Urine Appearance Clear Uretheral (Stringer) Clear Urine Color Bright Yellow Uretheral (Stringer) Light Julienne # Bowel Movements 0 Exam: General: Alert, Awake, No acute Distress, obese Eyes/N/T: EOMI, Head/Neck: neck supple, CV: RRR, No murmurs, Pulm: Clear b/l, no wheezing/rhonchi/rales Abd: soft, nontender, +BS x4 Ext: no clubbing/cyanosis/edema Neuro: Alert, no focal deficits, moves all extremities, Skin: warm/dry OBJ DATA Labs CBC & Chem 7: 10/20/21 05:15 10/20/21 05:14 Labs: Abnormal Lab Results 10/20/21 10/20/21 10/19/21 05:15 05:14 17:00 RBC 2.85 L Hgb 8.6 L 9.6 L Hct 25.8 L 28.3 L RDW 15.7 H Plt Count 66 L MPV 12.6 H Neut % (Auto) 28.2 L Lymph % (Auto) 63.1 H Lymph # (Auto) 4.83 H Seg Neutrophils % Lymphocytes % Platelet Estimate RBC Morphology Anisocytosis Sodium 132 L Carbon Dioxide Glucose 107 H Calcium 8.1 L Total Bilirubin 1.1 H Direct Bilirubin 0.3 H Total Protein 4.3 L Albumin 2.4 L Globulin 1.9 L 10/19/21 10/19/21 10/18/21 05:58 05:58 15:00 RBC 2.59 L 2.70 L Hgb 7.6 L 8.4 L Hct 24.0 L 24.1 L RDW 16.1 H 15.9 H Plt Count 53 L 60 L MPV 12.4 H 11.6 H Neut % (Auto) 29.4 L Lymph % (Auto) 61.6 H Lymph # (Auto) Seg Neutrophils % 35 L Lymphocytes % 53 H Platelet Estimate Decreased A RBC Morphology Abnormal A Anisocytosis 1+ A Sodium Carbon Dioxide Glucose 107 H Calcium 8.0 L Total Bilirubin 1.2 H Direct Bilirubin 0.3 H Total Protein 4.1 L Albumin 2.5 L Globulin 1.6 L 10/18/21 10/18/21 10/18/21 06:15 06:15 00:43 RBC 2.25 L Hgb 6.9 L* 6.6 L* Hct 20.9 L* 21.1 L RDW 15.8 H Plt Count 66 L MPV 12.2 H Neut % (Auto) 34.3 L Lymph % (Auto) 56.0 H Lymph # (Auto) Seg Neutrophils % Lymphocytes % Platelet Estimate RBC Morphology Anisocytosis Sodium Carbon Dioxide 20 L Glucose 113 H Calcium 7.8 L Total Bilirubin Direct Bilirubin 0.3 H Total Protein 3.7 L Albumin 2.4 L Globulin 1.3 L Meds: Medications Acetaminophen (Acetaminophen 325 Mg Tablet) 650 mg PO Q4-6HP PRN; Protocol PRN Reason: Per Pain Protocol/Fever > 101 Last Admin: 10/18/21 19:33 Dose: 650 mg Documented by: Hydrocodone Bitart/Acetaminophen (Hydrocodone/Apap 10/325mg Tablet) 0 tab PO Q4HP PRN; Protocol PRN Reason: Per Pain Protocol Last Admin: 10/19/21 21:47 Dose: 1 tab Documented by: Bisacodyl (Bisacodyl 10 Mg Supp.Rect) 10 mg ID Q2-3DAYS PRN PRN Reason: Constipation Docusate Sodium (Docusate Sodium 100 Mg Capsule) 100 mg PO BID CANDELARIA Last Admin: 10/19/21 21:47 Dose: 100 mg Documented by: Guaifenesin/Codeine Phosphate (Guaifenesin/Codeine 10 Ml Udc) 10 ml PO Q4HP PRN PRN Reason: Cough Hydralazine HCl (Hydralazine 20 Mg/Ml Vial) 10 mg IV Q4-6HP PRN PRN Reason: Hypertension Potassium Chloride 40 meq/ (Dextrose) 520 mls @ 130 mls/hr IV UD PRN PRN Reason: K+ = or < 3.5 Acetaminophen (Ofirmev) 650 mg in 65 mls @ 130 mls/hr IV Q6HP PRN; Protocol PRN Reason: Per Pain Protocol/Fever > 101 Last Infusion: 10/18/21 06:20 Dose: Infused Documented by: Magnesium Sulfate (Magnesium Sulfate) 2 gm in 50 mls @ 50 mls/hr IV UD PRN PRN Reason: MG = or < 1.7 Last Infusion: 10/19/21 05:40 Dose: Infused Documented by: Iron Carb/Multivit/Terminal Gauger/Folic Acid (Multivit,Ther Iron,Ca,Fa & Min 1 Tablet) 1 tab PO DAILY CANDELARIA Last Admin: 10/19/21 09:27 Dose: 1 tab Documented by: Magnesium Hydroxide (Magnesium Hydroxide 30 Ml Oral.Susp) 30 ml PO BIDP PRN PRN Reason: Constipation Melatonin (Melatonin 3 Mg Tablet) 3 mg PO HSP PRN PRN Reason: Insomnia Last Admin: 10/19/21 21:47 Dose: 3 mg Documented by: Methocarbamol (Methocarbamol 750 Mg Tablet) 750 mg PO Q6HP PRN PRN Reason: Muscle Spasm Last Admin: 10/19/21 05:26 Dose: 750 mg Documented by: Morphine Sulfate (Morphine 4 Mg/Ml Vial) 0 mg IV Q1HP PRN; Protocol PRN Reason: Per Pain Protocol Ondansetron HCl (Ondansetron 4 Mg/2 Ml Vial) 4 mg IV Q4-6HP PRN; Protocol PRN Reason: Nausea And Vomiting Ondansetron HCl (Ondansetron 4 Mg Odt Tablet) 4 mg SL Q4HP PRN; Protocol PRN Reason: Nausea And Vomiting Acalabrutinib [ Calquence] 100 Mg Capsule 1 dose PO Q12 [facility] Polyethylene Glycol (Polyethylene Glycol 3350 17 Gm Packet) 17 gm PO DAILYP PRN PRN Reason: Constipation Senna (Sennosides 1 Tablet) 2 tab PO HS [facility] Last Admin: 10/19/21 21:47 Dose: 2 tab Documented by: Sodium Biphosphate/Sodium Phosphate (Fleets Adult Enema) 1 dose ID Q3-4DAYS PRN PRN Reason: Constipation Sodium Chloride (0.9 % Sodium Chloride 10 Ml Syringe) 10 ml IV Q8 [facility] Last Admin: 10/20/21 04:33 Dose: 10 ml Documented by: Throat Lozenges (Benzocaine/Menthol 1 Lozenge) 1 lozenge PO PRN PRN PRN Reason: Sore Throat A/P Narrative A/P Narrative: A: *Left hip fracture: s/p ORIF (10/17) -Preoperative risk evaluation-overall high risk category based on surgery specific risk however no modifiable risk factors at this time. Surgery and anesthesia specific risks will be addressed by individual care providers *Acute post-op anemia / trauma from fx, on chronic anemia: -Hgb 8.6<9.6<(1prbc)7.6<8.4(2prbc 10/18)<6.6<8.6 *Vastus Intermedius intramuscular hemorrhage: 2/2 trauma *Hypotension, asymptomatic: improved but low-normal, asymptomatic with mild hypotension *h/o DVT May 2021: on apixaban *h/o CLL in remission since 2019: on chemotherapy *obesity: *Thrombocytopenia, chronic: *volume depletion: improved Plan: -Ortho following -f/u H&H, prn transfusion, platelet transfusion if fall <50k -Hold anticoagulation for now given intramuscular bleeding and anemia -cont home medication for CLL -pt/ot -ppx: SCD, eliquis on hold for now given hemorrhage/anemia Time Spent With Patient Time: Total time spent is greater than 50% in coordination of care (as documented) at patient's floor/unit and/or counseling patient:
[2021-10-20] MEDS: HYDROcodone/APAP 10/325MG TABLET PO PRN ×3 (09:27→23:27)
[2021-10-20] MEDS: MULTIVIT,THER IRON,CA,FA & MIN 1 TABLET PO SCH (09:28)
[2021-10-20] MEDS: DOCUSATE SODIUM 100 MG CAPSULE PO SCH ×2 (09:28→21:41)
[2021-10-20] MEDS: METHOCARBAMOL 750 MG TABLET PO PRN (17:35)
[2021-10-20] MEDS: SENNOSIDES 1 TABLET PO SCH (21:42)
[2021-10-21] MEDS: 0.9 % SODIUM CHLORIDE 10 ML SYRINGE IV SCH ×3 (05:21→20:37)
[2021-10-21 06:26] LABS: Basophils # (Auto) 0.02 K/mcL (0.00-0.30); Basophils % (Auto) 0.3 % (0.0-2.0); Eosinophils # (Auto) 0.04 K/mcL (0.00-0.70); Eosinophils % (Auto) 0.6 % (0.0-7.0); Hematocrit 26.5 % (34.1-44.9); Hemoglobin 8.5 g/dL (11.2-15.7); Lymphocytes % (Auto) 67.2 % (15.5-49.0); Mean Cell Volume 93.6 fL (80.0-100.0); Mean Corpuscular HGB Conc 32.1 g/dL (31.0-36.0); Mean Platelet Volume 11.6 fL (7.4-10.4); Monocytes # (Auto) 0.37 K/mcL (0.10-0.90); Monocytes % (Auto) 5.6 % (1.0-12.0); Neutrophils % (Auto) 26.3 % (38.0-78.0); Platelet Count 77 K/mcL (140-440); RBC 2.83 M/mcL (3.59-5.38); Red Cell Distribution Width 15.6 % (11.5-14.5); WBC 6.6 K/mcL (4.5-11.0)
[2021-10-21 07:50] LABS: ALT/SGPT 6 U/L (<40); AST/SGOT 19 U/L (<32); Albumin 2.3 gm/dL (3.2-5.2); Alkaline Phosphatase 70 U/L (39-117); Bilirubin,Direct 0.2 mg/dL (<0.3); Blood Urea Nitrogen 12 mg/dL (8-23); Calcium 8.7 mg/dL (8.6-10.4); Carbon Dioxide 22 mmol/L (22-30); Chloride 104 mmol/L (96-108); Globulin 2.4 gm/dL (2.2-3.7); Glomerular Filtration Rate 78; Glucose 103 mg/dL (70-105); Lactate Dehydrogenase 187 U/L (135-225); Phosphorous 3.3 mg/dL (2.5-4.5); Triglycerides 94 mg/dL (<150); Uric Acid 4.9 mg/dL (2.5-8.0)
[2021-10-21] MEDS: MULTIVIT,THER IRON,CA,FA & MIN 1 TABLET PO SCH (07:54)
[2021-10-21] MEDS: DOCUSATE SODIUM 100 MG CAPSULE PO SCH ×2 (07:58→20:36)
[2021-10-21 08:04] LABS: Blood Urea Nitrogen 12 mg/dL (8-23); Calcium 8.7 mg/dL (8.6-10.4); Carbon Dioxide 21 mmol/L (22-30); Chloride 103 mmol/L (96-108); Glomerular Filtration Rate 78; Glucose 100 mg/dL (70-105)
[2021-10-21] MEDS: HYDROcodone/APAP 10/325MG TABLET PO PRN ×2 (08:41→16:31)
--- NOTE | 2021-10-21 08:52 | Internal Med Progress Note ---
SUBJECTIVE Subjective Patient information: Note initiated : 10/21/21 at 8:50 am Service Date, if different from initiated Date: [] Patient: Allison Mcnally a 86 y/o F admitted on 10/16/21 for hip fracture. Chief Complaint: [] Interval history: Ms. 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 following a fall this evening sustaining Left hip fracture. She was visiting her friend at [facility] from [facility]. She sustained a mechanical fall while moving backwards and tripping on the door threshold landing on her back. She thereafter was transferred to [facility] where she underwent work-up consistent with left hip fracture. Orthopedics was consulted at [facility] and recommended transfer for operative intervention. Hospitalist service was consulted to facilitate admission while patient will undergo operative intervention in 24 hours. Patient has been on apixaban which was held, her last dose was this morning. At the time of my evaluation patient is alert and oriented. She denies active distress. She denies fever chills, loss of consciousness, headache, chest pain or vertigo. She is otherwise fairly healthy at baseline. She denies recent hospitalization. She follows up with oncology for CLL currently in remission since 2019. Denies precipitating events including lightheadedness, vertigo, dizziness or loss of consciousness following fall. She denies pain elsewhere. 10/17-patient awaits surgery later this evening. Doing well. Pain is reasonably well controlled. Will review postop. No overnight fever chills or concerns per nursing staff. 10/18 Patient was hypotensive last night although asymptomatic other than fatigue but she was quite anemic at 6.6 postop. Received a unit of blood last night awaiting 2nd unit still. Receive lactated Ringer bolus x2. Patient denies any chest pain shortness of breath nausea. 10/19 Patient states she slept better feels well better today. Denies dizziness or lightheadedness chest pain or shortness of breath. Hemogl 7.6 states. Transfuse 1 unit given intramuscular hemorrhage follow-up H&H. Monitor platelets. 10/20 Patient still feeling weak. No overnight events. No new complaints. Hemoglobin mid eights. Platelets stable. [facility] 10/21 No overnight event or new complaints. Hemoglobin stable. Awaiting placement. Review of Systems: denies headache/fever/chills/nausea/vomiting/chest or abdominal pain/cough/dyspnea/diarrhea. Otherwise see above. Constitutional Vitals: Vital Signs Temp Pulse Resp BP Pulse Ox 99.3 F H 92 H 12 108/60 96 10/21/21 07:11 10/21/21 04:00 10/21/21 07:11 10/21/21 07:11 10/21/21 07:11 Period Temp Pulse Resp BP Sys/Sánchez Pulse Ox Last 24 Hr 98.2 F-99.3 F 74-96 12-18 94-110/50-68 93-98 Intake and Output 10/20/21 10/21/21 10/21/21 21:59 05:59 13:59 Intake Total 620 Output Total 600 350 Balance -600 270 Weight 86.727 kg Intake & Output: Intake & Output 10/20/21 10/21/21 10/21/21 21:59 05:59 13:59 Intake Total 620 Output Total 600 350 Balance -600 270 Weight 86.727 kg Intake: Nourishment/Supplement quantity 220 (ml) Oral 400 Output: Urine Catheter Amount 600 Void Amount 350 Other: Meal Nourishment/Supplement Nourishment/Supplement name ensure Urine Appearance Clear Clear Urine Color Bright Yellow Bright Yellow Urine Odor Normal Stool Size Moderate Stool Color Brown Stool Consistency Soft Formed # Bowel Movements 1 0 Exam: General: Alert, Awake, No acute Distress, obese Eyes/N/T: EOMI, Head/Neck: neck supple, CV: RRR, No murmurs, Pulm: Clear b/l, no wheezing/rhonchi/rales Abd: soft, nontender, +BS x4 Ext: no clubbing/cyanosis/edema Neuro: Alert, no focal deficits, moves all extremities, Skin: warm/dry OBJ DATA Labs CBC & Chem 7: 10/21/21 05:24 10/21/21 05:25 Labs: Abnormal Lab Results 10/21/21 10/21/21 10/21/21 05:25 05:24 05:24 RBC 2.83 L Hgb 8.5 L Hct 26.5 L RDW 15.6 H Plt Count 77 L MPV 11.6 H Neut % (Auto) 26.3 L Lymph % (Auto) 67.2 H Lymph # (Auto) Seg Neutrophils % Lymphocytes % Absolute Neutrophils 1.72 L Platelet Estimate RBC Morphology Anisocytosis Sodium Carbon Dioxide 21 L Glucose Calcium Total Bilirubin Direct Bilirubin Total Protein 4.7 L Albumin 2.3 L Globulin 10/20/21 10/20/21 10/19/21 05:15 05:14 17:00 RBC 2.85 L Hgb 8.6 L 9.6 L Hct 25.8 L 28.3 L RDW 15.7 H Plt Count 66 L MPV 12.6 H Neut % (Auto) 28.2 L Lymph % (Auto) 63.1 H Lymph # (Auto) 4.83 H Seg Neutrophils % Lymphocytes % Absolute Neutrophils Platelet Estimate RBC Morphology Anisocytosis Sodium 132 L Carbon Dioxide Glucose 107 H Calcium 8.1 L Total Bilirubin 1.1 H Direct Bilirubin 0.3 H Total Protein 4.3 L Albumin 2.4 L Globulin 1.9 L 10/19/21 10/19/21 10/18/21 05:58 05:58 15:00 RBC 2.59 L 2.70 L Hgb 7.6 L 8.4 L Hct 24.0 L 24.1 L RDW 16.1 H 15.9 H Plt Count 53 L 60 L MPV 12.4 H 11.6 H Neut % (Auto) 29.4 L Lymph % (Auto) 61.6 H Lymph # (Auto) Seg Neutrophils % 35 L Lymphocytes % 53 H Absolute Neutrophils Platelet Estimate Decreased A RBC Morphology Abnormal A Anisocytosis 1+ A Sodium Carbon Dioxide Glucose 107 H Calcium 8.0 L Total Bilirubin 1.2 H Direct Bilirubin 0.3 H Total Protein 4.1 L Albumin 2.5 L Globulin 1.6 L 10/18/21 10/18/21 06:15 06:15 RBC 2.25 L Hgb 6.9 L* Hct 20.9 L* RDW 15.8 H Plt Count 66 L MPV 12.2 H Neut % (Auto) 34.3 L Lymph % (Auto) 56.0 H Lymph # (Auto) Seg Neutrophils % Lymphocytes % Absolute Neutrophils Platelet Estimate RBC Morphology Anisocytosis Sodium Carbon Dioxide 20 L Glucose 113 H Calcium 7.8 L Total Bilirubin Direct Bilirubin 0.3 H Total Protein 3.7 L Albumin 2.4 L Globulin 1.3 L Meds: Medications Acetaminophen (Acetaminophen 325 Mg Tablet) 650 mg PO Q4-6HP PRN; Protocol PRN Reason: Per Pain Protocol/Fever > 101 Last Admin: 10/18/21 19:33 Dose: 650 mg Documented by: Hydrocodone Bitart/Acetaminophen (Hydrocodone/Apap 10/325mg Tablet) 0 tab PO Q4HP PRN; Protocol PRN Reason: Per Pain Protocol Last Admin: 10/21/21 08:41 Dose: 1 tab Documented by: Bisacodyl (Bisacodyl 10 Mg Supp.Rect) 10 mg FL Q2-3DAYS PRN PRN Reason: Constipation Docusate Sodium (Docusate Sodium 100 Mg Capsule) 100 mg PO BID CANDELARIA Last Admin: 10/21/21 07:58 Dose: 100 mg Documented by: Guaifenesin/Codeine Phosphate (Guaifenesin/Codeine 10 Ml Udc) 10 ml PO Q4HP PRN PRN Reason: Cough Hydralazine HCl (Hydralazine 20 Mg/Ml Vial) 10 mg IV Q4-6HP PRN PRN Reason: Hypertension Potassium Chloride 40 meq/ (Dextrose) 520 mls @ 130 mls/hr IV UD PRN PRN Reason: K+ = or < 3.5 Acetaminophen (Ofirmev) 650 mg in 65 mls @ 130 mls/hr IV Q6HP PRN; Protocol PRN Reason: Per Pain Protocol/Fever > 101 Last Infusion: 10/18/21 06:20 Dose: Infused Documented by: Magnesium Sulfate (Magnesium Sulfate) 2 gm in 50 mls @ 50 mls/hr IV UD PRN PRN Reason: MG = or < 1.7 Last Infusion: 10/19/21 05:40 Dose: Infused Documented by: Iron Carb/Multivit/Paper Bags Sewing Machine Operator/Folic Acid (Multivit,Ther Iron,Ca,Fa & Min 1 Tablet) 1 tab PO DAILY [facility] Last Admin: 10/21/21 07:54 Dose: 1 tab Documented by: Magnesium Hydroxide (Magnesium Hydroxide 30 Ml Oral.Susp) 30 ml PO BIDP PRN PRN Reason: Constipation Melatonin (Melatonin 3 Mg Tablet) 3 mg PO HSP PRN PRN Reason: Insomnia Last Admin: 10/19/21 21:47 Dose: 3 mg Documented by: Methocarbamol (Methocarbamol 750 Mg Tablet) 750 mg PO Q6HP PRN PRN Reason: Muscle Spasm Last Admin: 10/20/21 17:35 Dose: 750 mg Documented by: Morphine Sulfate (Morphine 4 Mg/Ml Vial) 0 mg IV Q1HP PRN; Protocol PRN Reason: Per Pain Protocol Ondansetron HCl (Ondansetron 4 Mg/2 Ml Vial) 4 mg IV Q4-6HP PRN; Protocol PRN Reason: Nausea And Vomiting Ondansetron HCl (Ondansetron 4 Mg Odt Tablet) 4 mg SL Q4HP PRN; Protocol PRN Reason: Nausea And Vomiting Acalabrutinib [ Calquence] 100 Mg Capsule 1 dose PO Q12 [facility] Last Admin: 10/21/21 07:54 Dose: Not Given Documented by: Polyethylene Glycol (Polyethylene Glycol 3350 17 Gm Packet) 17 gm PO DAILYP PRN PRN Reason: Constipation Senna (Sennosides 1 Tablet) 2 tab PO HS [facility] Last Admin: 10/20/21 21:42 Dose: Not Given Documented by: Sodium Biphosphate/Sodium Phosphate (Fleets Adult Enema) 1 dose FL Q3-4DAYS PRN PRN Reason: Constipation Sodium Chloride (0.9 % Sodium Chloride 10 Ml Syringe) 10 ml IV Q8 [facility] Last Admin: 10/21/21 05:21 Dose: 10 ml Documented by: Throat Lozenges (Benzocaine/Menthol 1 Lozenge) 1 lozenge PO PRN PRN PRN Reason: Sore Throat A/P Narrative A/P Narrative: A: *Left hip fracture: s/p ORIF (10/17) -Preoperative risk evaluation-overall high risk category based on surgery specific risk however no modifiable risk factors at this time. Surgery and anesthesia specific risks will be addressed by individual care providers *Acute post-op anemia / trauma from fx, on chronic anemia: -Hgb stable, 3prbc during admit *Vastus Intermedius intramuscular hemorrhage: 2/2 trauma *Hypotension, asymptomatic: improved but low-normal, asymptomatic with mild hypotension *h/o DVT May 2021: on apixaban *h/o CLL in remission since 2019: on chemotherapy *obesity: *Thrombocytopenia, chronic: *volume depletion: improved Plan: -Ortho following -prn transfusion, platelet transfusion if fall <50k -Hold anticoagulation for now given intramuscular bleeding and anemia -cont home medication for CLL -pt/ot -ppx: SCD, eliquis on hold for now given hemorrhage/anemia, restart at d/c as H&H stable Time Spent With Patient Time: Total time spent is greater than 50% in coordination of care (as documented) at patient's floor/unit and/or counseling patient:
[2021-10-21] MEDS: SENNOSIDES 1 TABLET PO SCH (20:36)
[2021-10-22] MEDS: 0.9 % SODIUM CHLORIDE 10 ML SYRINGE IV SCH (05:51)
[2021-10-22] MEDS: HYDROcodone/APAP 10/325MG TABLET PO PRN ×2 (07:24→11:42)
[2021-10-22] MEDS: MULTIVIT,THER IRON,CA,FA & MIN 1 TABLET PO SCH (08:42)
[2021-10-22] MEDS: DOCUSATE SODIUM 100 MG CAPSULE PO SCH (08:42)
== END 2021-10-22 14:05 | DRG 481 ==
LOC: ED 19:09 → MEDSUR 21:24
PROVIDERS: ADMIT Internal Medicine; ATTEND Internal Medicine